=== PATIENT | female | born 1950 | race Caucasian/White ===

== ENCOUNTER 2024-09-05 17:46 | Observation (INO) ==
--- NOTE | 2024-09-05 17:50 | ED Triage Note ---
Date of Service September 05, 2024 Provider in Triage Author: Shana Hassan History of Present Illness This patient was briefly evaluated while in triage. An abbreviated physical exam was performed. This patient is a 73-year-old Female who presents to the ED for evaluation hx of CAD, HTN, lipids was on low dose Lasix recently sent by cardiology for abnormal labs checked today low sodium 129, potassium 6.3 patient asymptomatic Physical Exam GENERAL: NAD CARDIOVASCULAR: RRR RESPIRATORY: CTA ABDOMEN: BS x 4. Nontender to palpation. Initial orders for labs and / or imaging were placed and patient was placed in the waiting area until a bed is available. Please see further documentation for the full ED course.
--- NOTE | 2024-09-05 18:14 | Emergency Department Note ---
Impression & Plan Acute hyperkalemia, JEFF (acute kidney injury) ED Provider Note HISTORY OF PRESENT ILLNESS: Patient is a 73-year-old female presenting with lab abnormalities. Patient was started on Lasix recently by her digital account supervisor 2 weeks ago. She had repeat laboratory workup done today and was referred to the emergency department due to her potassium being elevated. Patient reports no chest pain, shortness of breath or lightheadedness. Denies any nausea, vomiting or diarrhea. Denies any abdominal pain. She has no complaints. ROS: as above PHYSICAL EXAM: Constitutional: Patient appears in no acute distress. HENT: Head: Normocephalic and atraumatic. Eyes: EOMI, PERRL Mouth/Throat: Mucous membranes moist. Neck: Trachea midline. Neck supple. Cardiovascular: RRR, No murmurs, rubs or gallops. Intact distal pulses. Pulmonary/Chest: No respiratory distress. Breath sounds clear and equal bilaterally. No wheezes or rales. Abdominal: Abdomen soft, no tenderness, rebound or guarding. Musculoskeletal: No edema, tenderness or deformity noted. Skin: Warm and dry. No rash, erythema, pallor or cyanosis Psychiatric: Appropriate mood and affect for situation. Neurological: Alert and keenly responsive. CN II-XII grossly intact, moving all extremities equally and fully. MDM: - Vitals signs showed bradycardic. - History obtained via patient. History as above. - Chronic conditions affecting care: CAD; HLD; HTN - Differential diagnoses include, but are not limited to: kidney injury; dehydration; electrolyte abnormality; dysrhythmia - Order placed for continuous cardiac monitoring. At this time, monitor showed rate of 58 bpm with normal sinus rhythm, per my interpretation. - External medical records reviewed. Laboratory workup from earlier today was reviewed and showed potassium of 6.3 - EKG interpreted by myself showed normal sinus rhythm. Rate 59 bpm. QT 430. No acute ischemic changes. No significant peaked T waves. - Laboratory workup interpreted by myself showed slight leukocytosis (WBC 11.57); hyponatremia (Na 132); hyperkalemia (K 5.2); JEFF (Cr 2.24); hypermagnesemia (Mg 2.8); normal troponin - CXR negative for pneumonia, per my interpretation - Patient given 500 cc NS in ER. - Discussion was had with human services case manager about patient's case and need for admission - Hospitalist, Dr. Vasquez, consulted for admission - Patient admitted to [facility] service for further evaluation and management. 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) Abdominal pain (Acute) Intractable back pain (Acute 08/25/14) MRSA (methicillin resistant Staphylococcus aureus) (Acute) Postoperative state (Acute 03/20/14) Flank pain (Acute) Thoracic disc herniation (Acute) Medical History Depression, unspecified Esophageal reflux Hypertension Spondylolisthesis 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) Surgical History Tubal ligation status Social History Smoking Status: Current every day smoker Hx Alcohol Use: Yes Preferred Language: Pakistani Feels Safe at Home: Yes Allergies Allergies Allergy/AdvReac Type Severity Reaction Status Date / Time No Known Allergies Allergy Unverified 09/05/24 09:29 Home Meds Home Medications Medication Instructions Recorded Confirmed clonazepam 0.5 mg tablet 0.5 mg PO DAILY PRN 04/23/23 09/05/24 coenzyme Q10 200 mg capsule 200 mg PO DAILY 04/23/23 09/05/24 famotidine 40 mg tablet 40 mg PO DAILY 04/23/23 09/05/24 gabapentin 600 mg tablet 600 mg PO TID 04/23/23 09/05/24 linaclotide 145 mcg capsule 145 mcg PO DAILY 04/23/23 09/05/24 (Linzess) metoprolol succinate 50 mg 50 mg PO DAILY 04/23/23 09/05/24 tablet,extended release 24 hr sucralfate 1 gram tablet 1 g PO DAILY 04/23/23 09/05/24 aspirin 81 mg tablet,delayed 81 mg PO DAILY 08/22/24 09/05/24 release cholecalciferol (vitamin D3) 25 25 mcg PO WK 08/22/24 09/05/24 mcg (1,000 unit) capsule duloxetine 20 mg capsule,delayed 20 mg PO DAILY 08/22/24 09/05/24 release losartan 100 mg tablet 100 mg PO DAILY 08/22/24 09/05/24 Previous Rx's Medication Instructions Recorded magnesium chloride 71.5 mg 71.5 mg PO BID #60 tabs 06/24/23 (magnesium chloride) tablet,delayed release (Slow-Mag) tramadol 50 mg tablet 50 mg PO Q8H PRN pain #90 tabs 01/22/24 amlodipine 5 mg tablet 5 mg PO DAILY #90 tabs 04/22/24 triamterene 37.5 See Rx Instructions .Route 05/24/24 mg-hydrochlorothiazide 25 mg .COMPLEX #90 caps capsule furosemide 20 mg tablet (Lasix) 20 mg PO DAILY PRN weight gain, 09/05/24 edema, shortness of breath #30 tabs Results & Data (ED) Vital Signs Vital Signs - 24 hr 09/05/24 17:48 09/05/24 18:19 09/05/24 18:20 Temperature 36.0 C L Temperature Source Temporal Artery Scan Pulse Rate 59 L Pulse Rate [Apical] 62 Pulse Rate from SpO2 Sensor Respiratory Rate 16 20 Respiratory Effort / Characteristics Non-Labored Spontaneous Respiratory Depth Normal Respiratory Pattern Regular Blood Pressure 128/54 L 147/75 H Blood Pressure [Right Arm] 147/75 H Blood Pressure Mean 78 101 Blood Pressure Mean [Right Arm] 99 Pulse Oximetry 97 97 Oxygen Delivery Method Room Air Room Air Sepsis Recent Fever Within 48 Hours No Sepsis New/Unexplained Change in Mental Status N/A Sepsis Action Taken by Nursing No Action Required 09/05/24 18:21 09/05/24 18:22 09/05/24 18:24 Temperature Temperature Source Pulse Rate 62 60 60 Pulse Rate [Apical] Pulse Rate from SpO2 Sensor 60 Respiratory Rate 20 18 Respiratory Effort / Characteristics Respiratory Depth Respiratory Pattern Blood Pressure Blood Pressure [Right Arm] Blood Pressure Mean Blood Pressure Mean [Right Arm] Pulse Oximetry 97 97 Oxygen Delivery Method Room Air Sepsis Recent Fever Within 48 Hours Sepsis New/Unexplained Change in Mental Status Sepsis Action Taken by Nursing 09/05/24 18:27 09/05/24 18:30 09/05/24 18:42 Temperature Temperature Source Pulse Rate 60 59 L Pulse Rate [Apical] Pulse Rate from SpO2 Sensor 60 59 L Respiratory Rate 20 18 Respiratory Effort / Characteristics Respiratory Depth Respiratory Pattern Blood Pressure 131/70 Blood Pressure [Right Arm] Blood Pressure Mean 101 Blood Pressure Mean [Right Arm] Pulse Oximetry 96 95 Oxygen Delivery Method Sepsis Recent Fever Within 48 Hours Sepsis New/Unexplained Change in Mental Status Sepsis Action Taken by Nursing 09/05/24 18:54 09/05/24 19:00 09/05/24 19:00 Temperature Temperature Source Pulse Rate 64 Pulse Rate [Apical] Pulse Rate from SpO2 Sensor 63 Respiratory Rate 21 Respiratory Effort / Characteristics Respiratory Depth Respiratory Pattern Blood Pressure 122/99 122/99 Blood Pressure [Right Arm] Blood Pressure Mean 114 114 Blood Pressure Mean [Right Arm] Pulse Oximetry 96 Oxygen Delivery Method Sepsis Recent Fever Within 48 Hours Sepsis New/Unexplained Change in Mental Status Sepsis Action Taken by Nursing 09/05/24 19:03 09/05/24 19:24 09/05/24 19:30 Temperature Temperature Source Pulse Rate 58 L 59 L Pulse Rate [Apical] Pulse Rate from SpO2 Sensor 57 L 59 L Respiratory Rate 19 19 Respiratory Effort / Characteristics Respiratory Depth Respiratory Pattern Blood Pressure 127/61 Blood Pressure [Right Arm] Blood Pressure Mean 95 Blood Pressure Mean [Right Arm] Pulse Oximetry 96 96 Oxygen Delivery Method Sepsis Recent Fever Within 48 Hours Sepsis New/Unexplained Change in Mental Status Sepsis Action Taken by Nursing 09/05/24 19:30 09/05/24 19:48 09/05/24 19:54 Temperature Temperature Source Pulse Rate 58 L 58 L 60 Pulse Rate [Apical] Pulse Rate from SpO2 Sensor 58 L 58 L 60 Respiratory Rate 24 27 H 17 Respiratory Effort / Characteristics Respiratory Depth Respiratory Pattern Blood Pressure Blood Pressure [Right Arm] Blood Pressure Mean Blood Pressure Mean [Right Arm] Pulse Oximetry 98 97 97 Oxygen Delivery Method Sepsis Recent Fever Within 48 Hours Sepsis New/Unexplained Change in Mental Status Sepsis Action Taken by Nursing 09/05/24 20:00 09/05/24 20:00 09/05/24 20:01 Temperature Temperature Source Pulse Rate Pulse Rate [Apical] 62 Pulse Rate from SpO2 Sensor Respiratory Rate 20 21 Respiratory Effort / Characteristics Non-Labored Spontaneous Respiratory Depth Normal Respiratory Pattern Regular Blood Pressure 127/62 Blood Pressure [Right Arm] 127/62 Blood Pressure Mean 76 Blood Pressure Mean [Right Arm] 83 Pulse Oximetry 98 Oxygen Delivery Method Room Air Sepsis Recent Fever Within 48 Hours Sepsis New/Unexplained Change in Mental Status Sepsis Action Taken by Nursing 09/05/24 20:12 Temperature Temperature Source Pulse Rate 58 L Pulse Rate [Apical] Pulse Rate from SpO2 Sensor Respiratory Rate 16 Respiratory Effort / Characteristics Respiratory Depth Respiratory Pattern Blood Pressure Blood Pressure [Right Arm] Blood Pressure Mean Blood Pressure Mean [Right Arm] Pulse Oximetry 98 Oxygen Delivery Method Sepsis Recent Fever Within 48 Hours Sepsis New/Unexplained Change in Mental Status Sepsis Action Taken by Nursing Laboratory Data 09/05/24 18:05 09/05/24 18:05 Lab Results 09/05/24 Range/Units 18:05 WBC 11.57 H (4.8-10.8) K/ul RBC 3.84 L (4.20-5.40) M/uL Hgb 12.7 (12.0-16.0) g/dl Hct 36.2 L (37.0-47.0) % MCV 94.3 (80.0-100.0) fL MCH 33.1 (25.0-34.0) pg MCHC 35.1 (32.0-36.0) g/dL RDW Std Deviation 45.5 (36.4-46.3) fL RDW Coeff of Celina 13.2 (11.5-14.5) % Plt Count 326 (130-400) K/uL MPV 9.2 L (9.4-12.4) fL Neutrophils % (Manual) 43 % Lymphocytes % (Manual) 45 % Monocytes % (Manual) 6 % Eosinophils % (Manual) 5 % Basophils % (Manual) 1 % Neutrophils # (Manual) 4.98 (1.40-6.50) K/uL Total Absolute Neuts 4.98 (1.4-6.5) K/uL Lymphocytes # (Manual) 5.21 H (1.2-3.4) K/uL Total Abs Lymphocytes 5.21 H (1.2-3.4) K/uL Monocytes # (Manual) 0.69 H (0.11-0.59) K/uL Eosinophils # (Manual) 0.58 H (0-0.50) K/uL Basophils # (Manual) 0.12 (0-0.2) K/uL RBC Morphology Unremarkable Sodium 132 L (136-145) mmol/L Potassium 5.2 H (3.5-5.1) mmol/L Chloride 99 (98-107) mmol/L Carbon Dioxide 24 (21-32) mmol/L Anion Gap 9 (3-11) BUN 49 H (6-23) mg/dl Creatinine 2.24 H D (0.6-1.2) mg/dl Est Cr Clr Drug Dosing 21.5 ml/min eGFR 22.88 BUN/Creatinine Ratio 21.9 H (10-20) Glucose 95 (70-99(Fasting)) mg/dl Calcium 9.4 (8.6-10.3) mg/dl Magnesium 2.8 H (1.7-2.4) mg/dl Total Bilirubin 0.3 (0.2-1.0) mg/dl AST 15 (13-39) U/L ALT 12 (7-52) U/L Alkaline Phosphatase 92 (34-104) U/L Troponin I High Sens 4.4 (0-14) pg/ml Total Protein 7.5 (6.0-8.3) gm/dl Albumin 4.3 (3.4-5.0) gm/dl Globulin 3.2 (2.5-4.0) gm/dl Albumin/Globulin Ratio 1.3 (0.9-2) Administered Medications Discontinued Medications Sodium Chloride (Nss) 500 mls @ 999 mls/hr IV .Q31M ONE Stop: 09/05/24 19:36 Last Infusion: 09/05/24 19:42 Dose: Infused Documented By: [facility] Admin: 09/05/24 19:10 Dose: 999 mls/hr Documented By: [facility] Imaging Data Radiologist's Impression: Chest X-Ray 09/05/24 17:52 SINGLE VIEW CHEST CLINICAL HISTORY: Hyperkalemia FINDINGS: A PA chest radiograph is compared to study dated 08/22/2024. The cardiomediastinal silhouette is top normal for projection noting atherosclerotic calcification of the thoracic aorta. The lungs and pleural spaces are clear. No pneumothorax is seen. The skeletal structures are osteopenic. The bony thorax is grossly intact. Degenerative change is noted in the shoulders and spine. IMPRESSION: No active disease in the chest. ACT 112: Negative or not required by law. Electronically signed by: Matt Hanks M.D. 09/05/2024 6:31 PM Discharge Plan Visit Data Chief Complaint: Recheck/Abnormal Lab/Rx Stated Complaint: high potassium levels ED Provider: Barbara Hammond Discharge Problem: Acute hyperkalemia, JEFF (acute kidney injury) Forms Stand Alone Forms: [facility] Prescriptions Prescriptions: No Action Slow-Mag 71.5 mg tablet,delayed release (DR/EC) 71.5 mg PO BID Qty: 60 11RF tramadol 50 mg tablet 50 mg PO Q8H PRN (Reason: pain) Qty: 90 3RF amlodipine 5 mg tablet 5 mg PO DAILY Qty: 90 3RF triamterene-hydrochlorothiazid 37.5-25 mg capsule See Rx Instructions .ROUTE .COMPLEX Qty: 90 3RF Hold Instructions: JEFF/hyperkalemia Dose Instruction: TAKE ONE CAPSULE BY MOUTH EVERY DAY Rx Instructions: TAKE ONE CAPSULE BY MOUTH EVERY DAY gabapentin 600 mg tablet 600 mg PO TID sucralfate 1 gram tablet 1 g PO DAILY Linzess 145 mcg capsule 145 mcg PO DAILY clonazepam 0.5 mg tablet 0.5 mg PO DAILY PRN famotidine 40 mg tablet 40 mg PO DAILY metoprolol succinate 50 mg tablet extended release 24 hr 50 mg PO DAILY coenzyme Q10 200 mg capsule 200 mg PO DAILY duloxetine 20 mg capsule,delayed release(DR/EC) 20 mg PO DAILY losartan 100 mg tablet 100 mg PO DAILY Hold Instructions: JEFF/hyperkalemia cholecalciferol (vitamin D3) 25 mcg (1,000 unit) capsule 25 mcg PO WK aspirin 81 mg tablet,delayed release (DR/EC) 81 mg PO DAILY furosemide [Lasix] 20 mg tablet 20 mg PO DAILY PRN (Reason: weight gain, edema, shortness of breath) Qty: 30 2RF Referrals Referrals: Dusty Snyder [Primary Care Provider] -
--- NOTE | 2024-09-05 18:33 | XRay Report ---
SINGLE VIEW CHEST CLINICAL HISTORY: Hyperkalemia FINDINGS: A PA chest radiograph is compared to study dated 08/22/2024. The cardiomediastinal silhouett e is top normal for projection noting atherosclerotic calcification of the thoracic aorta. The lungs and pleural spaces are clear. No pneumothorax is seen. The skeletal structures are osteopenic. The mikal ny thorax is grossly intact. Degenerative change is noted in the shoulders and spine. IMPRESSION: No active disease in the chest. ACT 112: Negative or not required by law. Electronically signed by: Matt aHnks M.D. 09/05/2024 6:31 PM
[2024-09-05 18:46] LABS: Hematocrit (blood only) 36.2 % (37.0-47.0); Hemoglobin 12.7 g/dl (12.0-16.0); Mean Corpuscular Hemoglobin 33.1 pg (25.0-34.0); Mean Corpuscular Hgb Conc 35.1 g/dL (32.0-36.0); Mean Corpuscular Volume 94.3 fL (80.0-100.0); Mean Platelet Volume 9.2 fL (9.4-12.4); Platelet Count 326 K/uL (130-400); RDW Coefficient of Variation 13.2 % (11.5-14.5); RDW Standard Deviation 45.5 fL (36.4-46.3); Red Blood Count 3.84 M/uL (4.20-5.40); White Blood Count 11.57 K/ul (4.8-10.8)
[2024-09-05 18:58] LABS: ALC (manual) 5.21 K/uL (1.2-3.4); ANC (manual) 4.98 K/uL (1.4-6.5); Albumin Globulin Ratio 1.3 (0.9-2); Albumin Level 4.3 gm/dl (3.4-5.0); BUN Creatinine Ratio 21.9 (10-20); Basophils # (manual) 0.12 K/uL (0-0.2); Basophils % (manual) 1 %; Bilirubin,Total 0.3 mg/dl (0.2-1.0); Calcium 9.4 mg/dl (8.6-10.3); Creatinine Clr Calc Pharmacy 21.5 ml/min; Eosinophils # (manual) 0.58 K/uL (0-0.50); Eosinophils % (manual) 5 %; Globulin 3.2 gm/dl (2.5-4.0); Lymphocytes # (manual) 5.21 K/uL (1.2-3.4); Lymphocytes % (manual) 45 %; Magnesium 2.8 mg/dl (1.7-2.4); Monocytes # (manual) 0.69 K/uL (0.11-0.59); Monocytes % (manual) 6 %; Neutrophils # (manual) 4.98 K/uL (1.40-6.50); Neutrophils % (manual) 43 %; Potassium 5.2 mmol/L (3.5-5.1); RBC Morphology Unremarkable; Total Protein 7.5 gm/dl (6.0-8.3)
[2024-09-05 19:03] LABS: Troponin I High Sensitivity 4.4 pg/ml (0-14)
[2024-09-05] MEDS: SODIUM CHLORIDE 0.9% 500 ML IV ONE (19:10)
--- NOTE | 2024-09-05 21:02 | History & Physical Report ---
Date of Service September 05, 2024 Assessment & Plan (1) JEFF (acute kidney injury): (2) Acute hyperkalemia: (3) Shortness of breath: (4) Dyspnea on exertion: (5) Hypertension: (6) Stented coronary artery: (7) CAD (coronary artery disease): (8) Hypercholesterolemia: Plan Acute kidney injury/hyperkalemia/dehydration/hypertension- Hold Lasix, triamterene/hydrochlorothiazide and losartan Status post NSS 500 mL bolus in the ED Placed on NSS at 80 mL/h x 500 mL Recheck laboratories in a.m. CAD/hypertension- Holding Lasix, triamterene/HCTZ and losartan as noted well Continue aspirin, metoprolol succinate and amlodipine GERD/hiatal hernia- Suggested that she minimize acid drinks such as apple cider and Pepsi She presently is on famotidine 40 mg in the a.m., and Carafate 1 g daily If she has persistent symptoms of reflux despite dietary adjustments, medication adjustments can be made by increasing Carafate, and/or adding pantoprazole Anxiety- Continue Duloxetine and clonazepam History of Present Illness Chief Complaint: The patient is referred to the emergency department by the heart failure clinic, due to worsening outpatient laboratories with concerns regarding elevated potassium and worsening kidney function after being placed on Lasix 2 weeks ago. Primary Care Provider: Dusty Snyder The patient is a 73-year-old female with a past medical history including hypertension, stented coronary artery, hypercholesterolemia, CAD, anxiety, GERD, neuropathy, and shortness of breath with dyspnea on exertion. She was placed on Lasix 2 weeks ago by cardiology, and had outpatient laboratories performed today, which showed potassium 6.3 and a creatinine 1.83, and she was then referred to the ED for further assessment. Laboratories performed in the emergency department revealed a potassium of 5.2, and a creatinine of 2.24, and the patient was referred for evaluation for admission. Allergies Allergy/AdvReac Type Severity Reaction Status Date / Time No Known Allergies Allergy Unverified 09/05/24 09:29 Home Medications Medication Instructions Recorded Confirmed Type clonazepam 0.5 mg tablet 0.5 mg PO DAILY PRN Anxiety 04/23/23 09/05/24 History coenzyme Q10 200 mg capsule 200 mg PO DAILY 04/23/23 09/05/24 History famotidine 40 mg tablet 40 mg PO DAILY 04/23/23 09/05/24 History gabapentin 600 mg tablet 600 mg PO TID 04/23/23 09/05/24 History linaclotide 145 mcg capsule 145 mcg PO DAILY 04/23/23 09/05/24 History (Linzess) metoprolol succinate 50 mg 50 mg PO DAILY 04/23/23 09/05/24 History tablet,extended release 24 hr sucralfate 1 gram tablet 1 g PO DAILY 04/23/23 09/05/24 History magnesium chloride 71.5 mg 71.5 mg PO BID #60 tabs 06/24/23 09/05/24 Rx (magnesium chloride) tablet,delayed release (Slow-Mag) tramadol 50 mg tablet 50 mg PO Q8H PRN pain #90 tabs 01/22/24 09/05/24 Rx amlodipine 5 mg tablet 5 mg PO DAILY #90 tabs 04/22/24 09/05/24 Rx triamterene 37.5 See Rx Instructions .Route 05/24/24 09/05/24 Rx mg-hydrochlorothiazide 25 mg .COMPLEX #90 caps capsule aspirin 81 mg tablet,delayed 81 mg PO DAILY 08/22/24 09/05/24 History release cholecalciferol (vitamin D3) 25 25 mcg PO WK 08/22/24 09/05/24 History mcg (1,000 unit) capsule duloxetine 20 mg capsule,delayed 20 mg PO DAILY 08/22/24 09/05/24 History release losartan 100 mg tablet 100 mg PO DAILY 08/22/24 09/05/24 History furosemide 20 mg tablet (Lasix) 20 mg PO DAILY PRN weight gain, 09/05/24 09/05/24 Rx edema, shortness of breath #30 tabs Past Med/Surg History Problem List (Updated 09/05/24 @ 20:36 by Barbara Hammond MD) JEFF (acute kidney injury) (Acute) Acute hyperkalemia (Acute) Shortness of breath Dyspnea on exertion Osteoarthritis Hypomagnesemia Hypertension Stented coronary artery Hypercholesterolemia CAD (coronary artery disease) Thoracic disc herniation (Acute 08/29/14) Abdominal pain (Acute) Intractable back pain (Acute 08/25/14) MRSA (methicillin resistant Staphylococcus aureus) (Acute) Postoperative state (Acute 03/20/14) Flank pain (Acute) Thoracic disc herniation (Acute) Medical History Depression, unspecified Esophageal reflux Hypertension Spondylolisthesis 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) Surgical History Tubal ligation status Social History Smoking Status: Current every day smoker Tobacco Type: Cigarettes Cigarettes Per Day: 1 pack; Second Hand Exposure: No; Do You Dip or Chew Tobacco: No; Tobacco Cessation Education Requested by Patient: No Hx Alcohol Use: Yes Alcohol type: hard liquor Hx Substance Use: No Preferred Language: Serbian Communication Ability: Effective Hplc Chemist Required: No Beliefs That Will Affect Care: None Current Living Situation: Spouse Other Information That Helps Us Care for You: No Feels Safe at Home: Yes Safety Concerns: Feels Safe At This Time Assistive Devices: Denture - Upper and Glasses Review of Systems Review of Systems: The patient denies chest pain, palpitations, cough, lower extremity swelling, sore throat, fevers, chills, sweats, nausea, vomiting, diarrhea , constipation, abdominal pain, pelvic pain, blood in urine or stool, dysuria, urinary frequency or urgency, lightheadedness, dizziness, headache, memory loss, loss of consciousness, rash, abnormal bruising or bleeding, imbalance, focal weakness, numbness or tingling in arms or legs, generalized arthralgias or myalgias, back or neck pain, or night sweats. The review of systems is otherwise negative other than for that already noted above, and at least 10 systems have been reviewed. Physical Exam Physical Exam: The patient is awake, alert and oriented 3, well developed and well nourished, normocephalic and atraumatic, lying in bed and in no acute distress. HEENT--PERRL, EOMI, mucous membranes and oropharynx dry Neck--supple. No JVD. No bruits. Thyroid normal, trachea midline, no adenopathy. Heart--normal S1 and S2. No murmurs, rubs or gallops. Lungs--clear bilaterally, no respiratory distress, no accessory muscle use. Abdomen--normal bowel sounds and soft. Nontender. Nondistended, no hernias or masses, no organomegaly. Extremities--no cyanosis or clubbing. No edema. There are good distal pulses b/l. Dermatologic--normal skin turgor, normal color, no abnormal lymph nodes, no rash. Neurologic--cranial nerves II through XII grossly intact. Rheumatologic--normal range of motion. Psychiatric--normal affect. Results & Data Results & Data Vital Signs (Past 12 Hours) Vital Signs Temp Pulse Pulse Resp BP BP Pulse Ox 09/05/24 20:51 62 20 95 09/05/24 20:45 62 23 95 09/05/24 20:33 62 25 H 98 09/05/24 20:31 133/45 L 09/05/24 20:12 58 L 16 98 09/05/24 20:01 127/62 09/05/24 20:00 21 09/05/24 20:00 62 20 127/62 98 09/05/24 19:54 60 17 97 09/05/24 19:48 58 L 27 H 97 09/05/24 19:30 58 L 24 98 09/05/24 19:30 127/61 09/05/24 19:24 59 L 19 96 09/05/24 19:03 58 L 19 96 09/05/24 19:00 122/99 09/05/24 19:00 122/99 09/05/24 18:54 64 21 96 09/05/24 18:42 59 L 18 95 09/05/24 18:30 131/70 09/05/24 18:27 60 20 96 09/05/24 18:24 60 18 97 09/05/24 18:22 60 20 97 09/05/24 18:21 62 09/05/24 18:20 62 20 147/75 H 97 09/05/24 18:19 147/75 H 09/05/24 17:48 36.0 C L 59 L 16 128/54 L 97 O2 Del Method 09/05/24 20:51 09/05/24 20:45 09/05/24 20:33 09/05/24 20:31 09/05/24 20:12 09/05/24 20:01 09/05/24 20:00 09/05/24 20:00 Room Air 09/05/24 19:54 09/05/24 19:48 09/05/24 19:30 09/05/24 19:30 09/05/24 19:24 09/05/24 19:03 09/05/24 19:00 09/05/24 19:00 09/05/24 18:54 09/05/24 18:42 09/05/24 18:30 09/05/24 18:27 09/05/24 18:24 09/05/24 18:22 Room Air 09/05/24 18:21 09/05/24 18:20 Room Air 09/05/24 18:19 09/05/24 17:48 Room Air Laboratory Results Laboratory Results WBC 11.57 K/ul (4.8-10.8) H 09/05/24 18:05 RBC 3.84 M/uL (4.20-5.40) L 09/05/24 18:05 Hgb 12.7 g/dl (12.0-16.0) 09/05/24 18:05 Hct 36.2 % (37.0-47.0) L 09/05/24 18:05 MCV 94.3 fL (80.0-100.0) 09/05/24 18:05 MCH 33.1 pg (25.0-34.0) 09/05/24 18:05 MCHC 35.1 g/dL (32.0-36.0) 09/05/24 18:05 RDW Std Deviation 45.5 fL (36.4-46.3) 09/05/24 18:05 RDW Coeff of Celina 13.2 % (11.5-14.5) 09/05/24 18:05 Plt Count 326 K/uL (130-400) 09/05/24 18:05 MPV 9.2 fL (9.4-12.4) L 09/05/24 18:05 Neutrophils % (Manual) 43 % 09/05/24 18:05 Lymphocytes % (Manual) 45 % 09/05/24 18:05 Monocytes % (Manual) 6 % 09/05/24 18:05 Eosinophils % (Manual) 5 % 09/05/24 18:05 Basophils % (Manual) 1 % 09/05/24 18:05 Neutrophils # (Manual) 4.98 K/uL (1.40-6.50) 09/05/24 18:05 Total Absolute Neuts 4.98 K/uL (1.4-6.5) 09/05/24 18:05 Lymphocytes # (Manual) 5.21 K/uL (1.2-3.4) H 09/05/24 18:05 Total Abs Lymphocytes 5.21 K/uL (1.2-3.4) H 09/05/24 18:05 Monocytes # (Manual) 0.69 K/uL (0.11-0.59) H 09/05/24 18:05 Eosinophils # (Manual) 0.58 K/uL (0-0.50) H 09/05/24 18:05 Basophils # (Manual) 0.12 K/uL (0-0.2) 09/05/24 18:05 RBC Morphology Unremarkable 09/05/24 18:05 Sodium 132 mmol/L (136-145) L 09/05/24 18:05 Potassium 5.2 mmol/L (3.5-5.1) H 09/05/24 18:05 Chloride 99 mmol/L (98-107) 09/05/24 18:05 Carbon Dioxide 24 mmol/L (21-32) 09/05/24 18:05 Anion Gap 9 (3-11) 09/05/24 18:05 BUN 49 mg/dl (6-23) H 09/05/24 18:05 Creatinine 2.24 mg/dl (0.6-1.2) H D 09/05/24 18:05 Est Cr Clr Drug Dosing 21.5 ml/min 09/05/24 18:05 eGFR 22.88 09/05/24 18:05 BUN/Creatinine Ratio 21.9 (10-20) H 09/05/24 18:05 Glucose 95 mg/dl (70-99(Fasting)) 09/05/24 18:05 Calcium 9.4 mg/dl (8.6-10.3) 09/05/24 18:05 Magnesium 2.8 mg/dl (1.7-2.4) H 09/05/24 18:05 Total Bilirubin 0.3 mg/dl (0.2-1.0) 09/05/24 18:05 AST 15 U/L (13-39) 09/05/24 18:05 ALT 12 U/L (7-52) 09/05/24 18:05 Alkaline Phosphatase 92 U/L (34-104) 09/05/24 18:05 Troponin I High Sens 4.4 pg/ml (0-14) 09/05/24 18:05 Total Protein 7.5 gm/dl (6.0-8.3) 09/05/24 18:05 Albumin 4.3 gm/dl (3.4-5.0) 09/05/24 18:05 Globulin 3.2 gm/dl (2.5-4.0) 09/05/24 18:05 Albumin/Globulin Ratio 1.3 (0.9-2) 09/05/24 18:05 Impressions Chest X-Ray 09/05/24 17:52 SINGLE VIEW CHEST CLINICAL HISTORY: Hyperkalemia FINDINGS: A PA chest radiograph is compared to study dated 08/22/2024. The cardiomediastinal silhouette is top normal for projection noting atherosclerotic calcification of the thoracic aorta. The lungs and pleural spaces are clear. No pneumothorax is seen. The skeletal structures are osteopenic. The bony thorax is grossly intact. Degenerative change is noted in the shoulders and spine. IMPRESSION: No active disease in the chest. ACT 112: Negative or not required by law. Electronically signed by: Matt Hanks M.D. 09/05/2024 6:31 PM Code Status & VTE Plan Code Status Full code VTE Prophylaxis Plan VTE Prophylaxis will be ordered: Yes PG Care Time/CCT Total # of Minutes Spent Total Time Spent with Patient: Total time spent is greater than 50% in coordination of care (as documented) at patient's floor/unit and/or counseling patient: Coding Level of Care Code 96470 INT INP/OBS CARE 3/75MIN Diagnoses JEFF (acute kidney injury) N17.9 Acute hyperkalemia E87.5 Shortness of breath R06.02 Dyspnea on exertion R06.09 Hypertension I10 Hypertension type: unspecified Stented coronary artery Z95.5 CAD (coronary artery disease) I25.10 Hypercholesterolemia E78.00 (5) Hypertension Hypertension type: unspecified Qualified Code(s): I10 - Essential (primary) hypertension
[2024-09-05] MEDS: SODIUM CHLORIDE 0.9% 500 ML IV SCH (21:20)
[2024-09-05] MEDS ORDERED: ACETAMINOPHEN 325 MG TAB PO PRN (22:26)
[2024-09-05] MEDS ORDERED: ONDANSETRON INJ 2 MG/ML 2 ML VIAL IV PRN (22:26)
[2024-09-05] MEDS ORDERED: clonazePAM 0.5 MG TAB PO PRN (22:26)
[2024-09-05] MEDS: FAMOTIDINE 40 MG TABLET PO SCH (23:33)
[2024-09-05] MEDS: GABAPENTIN 600 MG TAB PO SCH (23:33)
[2024-09-06 07:09] LABS: Basophils # (auto) 0.08 K/uL (0.00-0.20); Eosinophils # (auto) 0.03 K/uL (0.00-0.50); Eosinophils % (auto) 0.4 %; Hematocrit (blood only) 35.4 % (37.0-47.0); Immature Granulocytes # (auto) 0.04 K/uL (0.01-0.20); Immature Granulocytes % (auto) 0.5 %; Lymphocytes # (auto) 2.83 K/uL (1.20-3.40); Lymphocytes % (auto) 33.7 %; Mean Corpuscular Hemoglobin 32.3 pg (25.0-34.0); Mean Corpuscular Hgb Conc 33.9 g/dL (32.0-36.0); Mean Corpuscular Volume 95.2 fL (80.0-100.0); Mean Platelet Volume 8.8 fL (9.4-12.4); Monocytes # (auto) 0.65 K/uL (0.11-0.59); Monocytes % (auto) 7.7 %; Neutrophils # (auto) 4.76 K/uL (1.40-6.50); Neutrophils % (auto) 56.7 %; Platelet Count 264 K/uL (130-400); RDW Coefficient of Variation 13.3 % (11.5-14.5); RDW Standard Deviation 46.4 fL (36.4-46.3); Red Blood Count 3.72 M/uL (4.20-5.40); White Blood Count 8.39 K/ul (4.8-10.8)
[2024-09-06 07:28] LABS: Albumin Level 3.9 gm/dl (3.4-5.0); BUN Creatinine Ratio 24.5 (10-20); Calcium 8.7 mg/dl (8.6-10.3); Creatinine Clr Calc Pharmacy 33.6 ml/min; Magnesium 2.7 mg/dl (1.7-2.4); Phosphorus 3.7 mg/dl (2.5-4.9)
[2024-09-06 08:03] LABS: INR 0.9 (0.9-1.1); Partial Thromboplastin Time 26 Seconds (21-31); Prothrombin Time 10.1 Seconds (9.0-12.0)
[2024-09-06] MEDS: SUCRALFATE 1 GM TAB PO SCH (08:17)
[2024-09-06] MEDS: LINACLOTIDE 145 MCG CAPSULE PO SCH (08:17)
[2024-09-06] MEDS: ASPIRIN 81 MG ECTAB PO SCH (08:17)
[2024-09-06] MEDS: METOPROLOL SUCC 50MG EXT REL TAB PO SCH (08:17)
[2024-09-06] MEDS: DULoxetine HCL 20 MG CAP PO SCH (08:17)
[2024-09-06] MEDS: amLODIPine BESYLATE 5 MG TAB PO SCH (08:17)
--- NOTE | 2024-09-06 08:18 | Hospitalist Progress Note ---
Date of Service September 06, 2024 Assessment & Plan (1) JEFF (acute kidney injury): Plan: Presented at the referral of the heart failure clinic due to worsening outpatient laboratories with concerns regarding elevated potassium and worsening kidney function after being placed on Lasix 2 weeks ago. EF=60-65%. - Outpatient labs showed potassium of 6.3 and creatinine of 1.83 - Received 500 mL bolus in ED then maintenance 500 mL NSS - Potassium now WNL at 5.0, sodium now WNL at 136, magnesium slightly improved to 2.7 - Creatinine remains elevated, though improving at 1.43 - Hold Lasix, triamterene/hydrochlorothiazide, and losartan - Recheck laboratories in a.m. (2) Hypertension: Plan: CAD/hypertension - Holding Lasix, triamterene/HCTZ and losartan as noted well - Continue aspirin and amlodipine - Intermittent asymptomatic bradycardia, on metoprolol succinate 50 mg daily > Will hold 10/23 AM and monitor HR (3) Esophageal reflux: Plan: GERD/hiatal hernia- - Suggested that she minimize acid drinks such as apple cider and Pepsi - She presently is on famotidine 40 mg in the a.m. and Carafate 1 g daily - If she has persistent symptoms of reflux despite dietary adjustments, medication adjustments can be made by increasing Carafate, and/or adding pantoprazole (4) Lymphocytosis: Plan: Peripheral blood smear shows a lymphocytosis and monocytosis with reactive features - Potential etiologies include viral infection versus stress, among others - While a reactive etiology is favored, if the lymphocyte counts continues to increase without a clinically identifiable cause, then flow cytometry may be warranted to rule out a clonal component - Continue to monitor differential (5) Depression, unspecified: Plan: Continue Duloxetine and clonazepam (6) Acute hyperkalemia: Plan: Potassium of 6.4 on outpatient labs - Resolved (7) CAD (coronary artery disease): Plan Updated daughter at bedside Held metoprolol Ordered nicotine patch Reviewed tele monitoring CODE STATUS: Full code Admission and Anticipated Discharge Date Admission Date: September 05, 2024 Supervising Physician Co-Signing Physician Notes Attending Attestation - Chart reviewed, care plan d/w BLOSSOM Bell. I agree w/ the troy components of her documentation. Enoch Vale MD Subjective Patient seen and evaluated at bedside with daughter. She reports feeling well and has no acute complaints. She does note that she was frustrated with a lot of recent medication changes. We had a lengthy discussion about her medications, side effects of them, treatment course moving forward and outpatient. No additional concerns or complaints at this time. Physical Exam Physical Exam: General: No acute distress, nondiaphoretic, well-developed, well-nourished. Skin: The skin was without rashes, erythema, edema, or bruising. Cardiac: Regular rate and rhythm without murmurs gallops or rubs. Intermittent asymptomatic bradycardia in the 40s-50s. Pulm: Expiratory wheezing bilaterally. No respiratory distress. 95% on room air. Abdominal: Soft, nontender, nondistended. Bowel sounds present. Neuro: A&O x3. No focal neurological deficits. Results & Data Results & Data Vital Signs (Past 12 Hours) Vital Signs Temp Pulse Pulse Pulse Resp BP BP 09/06/24 07:41 09/06/24 07:17 97.9 F 63 18 09/06/24 05:45 62 09/06/24 03:07 98.2 F 60 16 165/65 H 09/05/24 22:38 66 09/05/24 22:36 09/05/24 22:36 97.9 F 63 18 119/71 09/05/24 20:51 62 20 09/05/24 20:45 62 23 09/05/24 20:33 62 25 H 09/05/24 20:31 133/45 L 09/05/24 20:12 58 L 16 BP Pulse Ox O2 Del Method 09/06/24 07:41 Room Air 09/06/24 07:17 108/47 L 95 Room Air 09/06/24 05:45 09/06/24 03:07 93 Room Air 09/05/24 22:38 09/05/24 22:36 Room Air 09/05/24 22:36 95 Room Air 09/05/24 20:51 95 09/05/24 20:45 95 09/05/24 20:33 98 09/05/24 20:31 09/05/24 20:12 98 Laboratory Results Reviewed CBC Reviewed CMP PG Care Time/CCT Total # of Minutes Spent Total Time Spent with Patient: Total time spent is greater than 50% in coordination of care (as documented) at patient's floor/unit and/or counseling patient: Coding Level of Care Code 95460 SUB INP/OBS CARE 50MIN Diagnoses JEFF (acute kidney injury) N17.9 Hypertension I10 Hypertension type: unspecified Esophageal reflux K21.9 Lymphocytosis D72.820 Depression, unspecified F32.A Acute hyperkalemia E87.5 CAD (coronary artery disease) I25.10 (2) Hypertension Hypertension type: unspecified Qualified Code(s): I10 - Essential (primary) hypertension
[2024-09-06] MEDS: traMADol HCL 50 MG TABLET PO PRN (08:20)
[2024-09-06] MEDS ORDERED: NON-FORMULARY MEDICATION (Coenzyme Q10 200 mg capsule) PO SCH (09:00)
[2024-09-06] MEDS: PNEUMOCOCCAL VACCINE (PCV20) 20-VAL CONJ-DIP CRM/PF 0.5 ML SYR IM ONE (13:57)
[2024-09-06] MEDS: INFLUENZA VACC TS2024-25(65y+)/PF (IIV3) 0.5mL Syr IM ONE (14:01)
[2024-09-06] MEDS: NICOTINE 21 MG/24 HR TDSY TD SCH (17:03)
[2024-09-07 07:12] LABS: Basophils # (auto) 0.06 K/uL (0.00-0.20); Basophils % (auto) 0.7 %; Eosinophils % (auto) 2.5 %; Hematocrit (blood only) 35.9 % (37.0-47.0); Hemoglobin 12.4 g/dl (12.0-16.0); Immature Granulocytes # (auto) 0.04 K/uL (0.01-0.20); Immature Granulocytes % (auto) 0.5 %; Lymphocytes % (auto) 23.3 %; Mean Corpuscular Hemoglobin 33.2 pg (25.0-34.0); Mean Corpuscular Hgb Conc 34.5 g/dL (32.0-36.0); Mean Platelet Volume 9.2 fL (9.4-12.4); Monocytes # (auto) 0.54 K/uL (0.11-0.59); Monocytes % (auto) 6.6 %; Neutrophils # (auto) 5.42 K/uL (1.40-6.50); Neutrophils % (auto) 66.4 %; Platelet Count 272 K/uL (130-400); RDW Coefficient of Variation 12.9 % (11.5-14.5); RDW Standard Deviation 45.5 fL (36.4-46.3); Red Blood Count 3.74 M/uL (4.20-5.40); White Blood Count 8.16 K/ul (4.8-10.8)
[2024-09-07 07:51] LABS: Albumin Level 4.2 gm/dl (3.4-5.0); BUN Creatinine Ratio 20.7 (10-20); Calcium 9.2 mg/dl (8.6-10.3); Creatinine Clr Calc Pharmacy 34.3 ml/min; Magnesium 2.3 mg/dl (1.7-2.4); Phosphorus 3.8 mg/dl (2.5-4.9); Potassium 5.1 mmol/L (3.5-5.1)
[2024-09-07 08:01] LABS: INR 0.9 (0.9-1.1); Partial Thromboplastin Time 26 Seconds (21-31)
[2024-09-07 08:05] VITALS: O2SAT 96
[2024-09-07 11:22] VITALS: RESP 20; TEMP 98.4
[2024-09-07] MEDS: PATIROMER CALCIUM SORBITEX 8.4 GM PACK PO ONE (13:25)
[2024-09-07 15:08] VITALS: BP 104/62
--- NOTE | 2024-09-07 18:49 | Discharge Summary ---
Discharge Summary Date of Service September 07, 2024 Principal Dx & Hospital Course #1 = Principal Diagnosis (1) JEFF (acute kidney injury): Presented at the referral of the heart failure clinic due to worsening outpatient laboratories with concerns regarding elevated potassium and worsening kidney function after being placed on Lasix 2 weeks ago. EF=60-65%. - Outpatient labs showed potassium of 6.3 and creatinine of 1.83 - Received 500 mL bolus in ED then maintenance 500 mL NSS - Potassium now WNL at 5.1, sodium now WNL at 136, magnesium now WNL at 2.3 - BUN and creatinine remain slightly elevated, though improving at 29 and 1.40 respectively - Discontinued Lasix - Held triamterene/hydrochlorothiazide and losartan until PCP follow-up appointment - Lab slip given for outpatient BMP in 3 days (2) Hypertension: CAD/hypertension - Holding Lasix, triamterene/HCTZ and losartan as noted well - Continue aspirin and amlodipine - Intermittent asymptomatic bradycardia, on metoprolol succinate 50 mg daily > Held on 09/07 and heart rates remained normal in 50s60s - Recommended patient hold metoprolol until PCP follow-up appointment. Perhaps this could be discontinued altogether, or dose could be decreased (3) Esophageal reflux: GERD/hiatal hernia- - Suggested that she minimize acid drinks such as apple cider and Pepsi - She presently is on famotidine 40 mg in the a.m. and Carafate 1 g daily - If she has persistent symptoms of reflux despite dietary adjustments, medication adjustments can be made by increasing Carafate, and/or adding pantoprazole (4) Lymphocytosis: Peripheral blood smear shows a lymphocytosis and monocytosis with reactive features - Potential etiologies include viral infection versus stress, among others - While a reactive etiology is favored, if the lymphocyte counts continues to increase without a clinically identifiable cause, then flow cytometry may be warranted to rule out a clonal component - Lymphocytosis resolved (5) Depression, unspecified: Continue Duloxetine and clonazepam (6) Acute hyperkalemia: Potassium of 6.4 on outpatient labs - Resolved (7) CAD (coronary artery disease): Plan CODE STATUS: Full code Notes For Next Care Provider Monitor heart rates and blood pressures Lab slip given for BMP in 3 days from discharge Referral made for pulmonologyperhaps an underlying COPD component to her shortness of breath Medication Changes From Visit Discontinued Lasix Held losartan, metoprolol, triamterene HCTZ, and magnesium supplement until PCP follow-up appointment Ordered albuterol inhaler Order nicotine patch to aid in smoking cessation Admission HPI Per Admitting Provider The patient is a 73-year-old female with a past medical history including hypertension, stented coronary artery, hypercholesterolemia, CAD, anxiety, GERD, neuropathy, and shortness of breath with dyspnea on exertion. She was placed on Lasix 2 weeks ago by cardiology, and had outpatient laboratories performed today, which showed potassium 6.3 and a creatinine 1.83, and she was then referred to the ED for further assessment. Laboratories performed in the emergency department revealed a potassium of 5.2, and a creatinine of 2.24, and the patient was referred for evaluation for admission. Admission Exam Per Admitting Provider The patient is awake, alert and oriented 3, well developed and well nourished, normocephalic and atraumatic, lying in bed and in no acute distress. HEENT--PERRL, EOMI, mucous membranes and oropharynx dry Neck--supple. No JVD. No bruits. Thyroid normal, trachea midline, no adenopathy. Heart--normal S1 and S2. No murmurs, rubs or gallops. Lungs--clear bilaterally, no respiratory distress, no accessory muscle use. Abdomen--normal bowel sounds and soft. Nontender. Nondistended, no hernias or masses, no organomegaly. Extremities--no cyanosis or clubbing. No edema. There are good distal pulses b/l. Dermatologic--normal skin turgor, normal color, no abnormal lymph nodes, no rash. Neurologic--cranial nerves II through XII grossly intact. Rheumatologic--normal range of motion. Psychiatric--normal affect. Discharge Exam General: No acute distress, nondiaphoretic, well-developed, well-nourished. Skin: The skin was without rashes, erythema, edema, or bruising. Cardiac: Regular rate and rhythm without murmurs gallops or rubs. Intermittent asymptomatic bradycardia in the 40s-50s. Pulm: Expiratory wheezing bilaterally with cough. No respiratory distress. 96% on room air. Abdominal: Soft, nontender, nondistended. Bowel sounds present. Neuro: A&O x3. No focal neurological deficits. Discharge Plan Discharge Items Patient Disposition: Home - Self-Care Reason For Visit: JEFF, HYPERKALEMIA, HYPONATREMIA Discharge Diagnosis: JEFF, acute hyperkalemiaresolved Activity: Resume your previous activity Non-emergency contact: Primary Care Provider Call non-emergency contact if: you have any medication questions Follow-up/Referrals: Dusty Snyder [Primary Care Provider] - (PLEASE CALL YOUR PRIMARY CARE PROVIDER TO SCHEDULE A HOSPITAL DISCHARGE FOLLOW-UP APPOINTMENT WITHIN 7-10 DAYS) Diet: Heart Healthy Ambulatory Orders: Basic Metabolic Panel (Routine) Timeframe: 3 Days Location: Determined by Patient Ordered By: Thea Gaviria Attending Provider Instructions: Mrs. Velazquez, You were admitted to the hospital with an acute kidney injury (JEFF) and high potassium level. Your elevated potassium and worsening kidney function was likely due to to starting Lasix (a diuretic) 2 weeks ago. Your electrolytes have returned to normal, and your kidney function has significantly improved. There have been some medication changes during this hospital stay as documented below. Upon discharge from the hospital: * STOP Lasix (diuretic) * HOLD the following medicines until your PCP follow-up appointment: - Triamterene HCTZ (diuretic) - Losartan 100 mg daily - Metoprolol 50 mg daily -- this medicine helps control your heart rate and blood pressure, which both have run a little low in the hospital. Your PCP may take you off of this completely or may reduce your dose. - SlowMag (magnesium supplement) * Use albuterol inhaler as needed for shortness of breath/wheezing, instructions below. - Take 90 or 180 mcg (1 or 2 actuations of 90 mcg/actuation) inhaled by mouth every 1 hour for 2 to 3 doses, then 90 or 180 mcg (1 or 2 actuations of 90 mcg/actuation) inhaled by mouth every 2 to 4 hours as needed. * It is in your best interest to refrain from smoking cigarettes. I have sent a prescription for nicotine patches to your pharmacy. You can apply one per day. * Try to minimize or avoid these foods/drinks that may worsen your GERD: Alcohol, fatty foods, chocolate, caffeine, spearmint or peppermint, citrus or other acidic juices, sodas, peppers, garlic, onions, or similar spices. * Get blood work done in 3 days from discharge. This is to monitor your electrolytes and kidney function. A lab slip will be given to you with your discharge paperwork. You can take this to any outpatient lab. * Please follow-up with your PCP within 1 week from discharge. * Please follow-up with the heart failure clinic as scheduled. * A referral has been made for you to see pulmonology (lung doctor). Please return to the hospital if you experience any of the following: Fever of 100.5 F or higher, rapid weight loss or weight gain, such as 3 pounds or more in 24 hours or 6 pounds or more in 7 days, severe muscle aches, very little or no urine output, significant swelling of your hands, legs, feet, pain in the neck/chest/back, choking, trouble breathing, wheezing, vomiting blood or what looks like coffee grounds, black tarry stools, chest pain/pressure/tightness, lightheadedness, dizziness, confusion, or passing out. It was a pleasure taking care of you while you were in the hospital, Thea Bell PA-C Pending Studies at Discharge: No Stand-Alone Forms: [facility], Smoking Cessation Medications and DC Order Prescriptions: New nicotine [Nicoderm CQ] 21 mg/24 hr Patch 24 Hour 1 patch transdermal QAM Qty: 28 0RF albuterol sulfate 90 mcg/actuation HFA aerosol inhaler 1 - 2 puff inhalation Q4H PRN (Reason: shortness of breath or wheezing) Qty: 8.5 0RF Continued tramadol 50 mg tablet 50 mg PO Q8H PRN (Reason: pain) Qty: 90 3RF amlodipine 5 mg tablet 5 mg PO DAILY Qty: 90 3RF gabapentin 600 mg tablet 600 mg PO TID sucralfate 1 gram tablet 1 g PO DAILY Linzess 145 mcg capsule 145 mcg PO DAILY clonazepam 0.5 mg tablet 0.5 mg PO DAILY PRN (Reason: Anxiety) famotidine 40 mg tablet 40 mg PO DAILY coenzyme Q10 200 mg capsule 200 mg PO DAILY duloxetine 20 mg capsule,delayed release(DR/EC) 20 mg PO DAILY cholecalciferol (vitamin D3) 25 mcg (1,000 unit) capsule 25 mcg PO WK aspirin 81 mg tablet,delayed release (DR/EC) 81 mg PO DAILY Held Slow-Mag 71.5 mg tablet,delayed release (DR/EC) 71.5 mg PO BID Qty: 60 11RF Hold Instructions: Resume on 09/16/24. Hold until follow-up PCP appointment triamterene-hydrochlorothiazid 37.5-25 mg capsule See Rx Instructions .ROUTE .COMPLEX Qty: 90 3RF Hold Instructions: JEFF/hyperkalemia Dose Instruction: TAKE ONE CAPSULE BY MOUTH EVERY DAY Rx Instructions: TAKE ONE CAPSULE BY MOUTH EVERY DAY metoprolol succinate 50 mg tablet extended release 24 hr 50 mg PO DAILY Hold Instructions: Resume on 09/16/24. Hold until follow-up PCP appointment losartan 100 mg tablet 100 mg PO DAILY Hold Instructions: JEFF/hyperkalemia Discontinued furosemide [Lasix] 20 mg tablet 20 mg PO DAILY PRN (Reason: weight gain, edema, shortness of breath) Qty: 30 2RF Discharge Orders: Discharge Order- CHF (Routine); Ordered 09/07/24 Ordered By: Thea Lopez/Other Patient Handouts: Acute Kidney Failure Dc, GERD Dc Admission Data Admit Date/Time: 09/05/24 21:01 Attending Provider: Enoch Vale Admit Provider: Luis Antonio Vasquez Primary Care Provider: Dusty Snyder Other Providers: Luis Antonio Vasquez Other Interventions: Discharge Summary Assessment (RN) Last Done: 09/07/24 15:05 Hospital Stay Data Consultations 09/05/24 20:22 ED Decision to Admit Stat Pending Results Patient Have Any Pending Studies at Discharge: No Discharge Instructions Given to Patient (Per Discharging Provider) Sekou Johnson were admitted to the hospital with an acute kidney injury (JEFF) and high potassium level. Your elevated potassium and worsening kidney function was likely due to to starting Lasix (a diuretic) 2 weeks ago. Your electrolytes have returned to normal, and your kidney function has significantly improved. There have been some medication changes during this hospital stay as documented below. Upon discharge from the hospital: * STOP Lasix (diuretic) * HOLD the following medicines until your PCP follow-up appointment: - Triamterene HCTZ (diuretic) - Losartan 100 mg daily - Metoprolol 50 mg daily -- this medicine helps control your heart rate and blood pressure, which both have run a little low in the hospital. Your PCP may take you off of this completely or may reduce your dose. - SlowMag (magnesium supplement) * Use albuterol inhaler as needed for shortness of breath/wheezing, instructions below. - Take 90 or 180 mcg (1 or 2 actuations of 90 mcg/actuation) inhaled by mouth every 1 hour for 2 to 3 doses, then 90 or 180 mcg (1 or 2 actuations of 90 mcg/actuation) inhaled by mouth every 2 to 4 hours as needed. * It is in your best interest to refrain from smoking cigarettes. I have sent a prescription for nicotine patches to your pharmacy. You can apply one per day. * Try to minimize or avoid these foods/drinks that may worsen your GERD: A lcohol, fatty foods, chocolate, caffeine, spearmint or peppermint, citrus or other acidic juices, sodas, peppers, garlic, onions, or similar spices. * Get blood work done in 3 days from discharge. This is to monitor your electrolytes and kidney function. A lab slip will be given to you with your discharge paperwork. You can take this to any outpatient lab. * Please follow-up with your PCP within 1 week from discharge. * Please follow-up with the heart failure clinic as scheduled. * A referral has been made for you to see pulmonology (lung doctor). Please return to the hospital if you experience any of the following: Fever of 100.5 F or higher, rapid weight loss or weight gain, such as 3 pounds or more in 24 hours or 6 pounds or more in 7 days, severe muscle aches, very little or no urine output, significant swelling of your hands, legs, feet, pain in the neck/chest/back, choking, trouble breathing, wheezing, vomiting blood or what looks like coffee grounds, black tarry stools, chest pain/pressure/tightness, lightheadedness, dizziness, confusion, or passing out. It was a pleasure taking care of you while you were in the hospital, Thea Bell PA-C Total Time Total Time Spent Total Time Spent (In Minutes): Greater than 30 minutes spent completing this discharge process including direct patient care, medication reconciliation, documentation, review of labs and images, and coordination of care. Coding Level of Care Code 67383 INP/OBS DISCH >30 MIN Diagnoses JEFF (acute kidney injury) N17.9 Hypertension I10 Hypertension type: unspecified Esophageal reflux K21.9 Lymphocytosis D72.820 Depression, unspecified F32.A Acute hyperkalemia E87.5 CAD (coronary artery disease) I25.10
[2024-09-07 19:40] VITALS: PULSE 61
--- NOTE | 2024-09-08 05:57 | Electrocardiogram Report ---
Test Reason : Blood Pressure : */* mmHG Vent. Rate : 59 BPM Atrial Rate : 59 BPM P-R Int : 140 ms QRS Dur : 80 ms QT Int : 430 ms P-R-T Axes : 76 50 54 degrees QTcB Int : 425 ms Poor data quality, interpretation may be adversely affected Sinus bradycardia Otherwise normal ECG When compared with ECG of 01-Apr-2023 12:39, No significant change was found Confirmed by Nilson Woods ([id number]) on 09/08/2024 5:56:55 AM Referred By: REFERRED SELF Confirmed By: Nilson Woods
== END 2024-09-07 16:06 | disposition home or self-care (01) ==
LOC: 2N 17:46 → ED 17:46 → SUATTDRO 21:01 → 2N 21:43

== ENCOUNTER 2024-10-13 08:00 | Observation (INO) ==
--- NOTE | 2024-10-13 10:44 | History & Physical Report ---
Date of Service October 13, 2024 Assessment & Plan (1) Acute heart failure with preserved ejection fraction: Plan: Suspect due to recent stopped diuretics HCTZ/triamterene/Lasix due to JEFF with hyperkalemia last admission and not restarted Start Lasix 40mg IV now Strict I&Os Daily weight TTE (2) Elevated troponin: Plan: Chest pain has some reproducible on palpation however story is also concerning for unstable angina vs GERD Given presumably stable (HS trop 85 in [facility]) and low suspect more demand- ischemia related to HFpEF than true NSTEMI therefore IV heparin drip currently deferred However she has a good story for unstable angina with her shortness of breath and chest pain therefore will consult cardiology to consider invasive testing despite negative dobutamine stress test in May Consult cardiology TTE ordered NPO until seen by cardiology (3) Esophageal reflux: Plan: Chest apin also has a possible GERD component as appears to be worse with prednisone and holding her Carafate Give famotidine and pantoprazole IV now and continue her usual Carafate Add pantoprazole to her usual regimen ongoing (4) Hypoxia: Plan: Suspect mainly due to acute HFpEF, will defer ongoing treatment for COPD at this time as prednisone hasn't helped and may have made her GERD worse causing the increased epigastric/chest pain (5) Leukocytosis: Plan: No infection source to suggest need to continue antibiotics Suspect secondary to recently starting prednisone as outpatient (6) Hypomagnesemia: Plan: Secondary to recent discontinued magnesium supplementation, suspect she needs to go back on this but perhaps at a lower dose Will restart Slow mag 72 mg once daily Mg sulfate 2g IV now Repeat levels in AM (7) Abnormal CT scan, pelvis: Plan: Bladder lesion seen on CT - recommend urology follow up Plan VTE Prophylaxis - Lovenox 40mg SQ daily Diet - NPO pending cardiology evaluation Disposition - admit to PCU Admission and Anticipated Discharge Date Admission Date: October 13, 2024 History of Present Illness Chief Complaint: Shortness of breath Chest pain Primary Care Provider: Dusty Snyder Lauren Estuardokayla is a 73 year old female with chronic HFpEF, chronic bronchitis who presents to [facility] ER with shortness of breath and epigastric/chest pain. She finds it difficult to give me exact timelines of events but in general she notes severe epigastric/lower chest pain ongoing intermittently for the last 9 weeks. She first noticed it at rest while watching a TV show and it would last for minutes at a time. She reports associated shortness of breath with the pain. Worse on exertion, improved with rest. The episode have been more frequent and lasting longer. Improves on leaning forward. She also feels famotidine helps. The episode last night was the most severe it had been and lasted for hours starting at 10pm which prompted her visit to [facility]. She continues to notice mild pain currently. In the ER there was concern for sepsis with her elevated WBC (although notably had just started a prednisone course with her PCP yesterday). She was given IV Zosyn and IV vancomycin was ordered but never given. She was not given any fluid bolus due to concerns for congestive heart failure. She was noted to be hypoxic and started on 2LPM O2. CT chest for PE and A/P with IV contrast with impression below but main finding was mild interstitial pulmonary edema. There was some concern for COPD exacerbation and she was given Solu-Medrol 125mg IV but no nebulizer. Flu and SARS-COV-2 PCR were negative. High sensitivity troponin I 85 therefore her case was discussed with the investor relations specialist hospitalist here for transfer due to no cardiology coverage at [facility]. She notably was recently admitted from September 05 - 2023 due to Acute kidney injury (Cr 1.83 , baseline 0.62), hyperkalemia (6.3) and dehydration suspected to be from recent addition of Lasix for possible heart failure. Lasix, triamterene, HCTZ, losartan and magnesium supplementation were held until PCP follow up. She reports not restarting on any of these and her family have noticed she has been getting much more swollen. She reports 6-7lb of weight gain since her last admission but feels she has been eating much more since giving up smoking. She was recently seen by pulmonology for possible COPD causing her symptoms however spirometry was indeterminant and she has multiple upcoming tests in October. Allergies Allergy/AdvReac Type Severity Reaction Status Date / Time No Known Allergies Allergy Unverified 09/20/24 09:32 Home Medications Medication Instructions Recorded Confirmed Type clonazepam 0.5 mg tablet 0.5 mg PO DAILY PRN Anxiety 04/23/23 10/13/24 History coenzyme Q10 200 mg capsule 200 mg PO DAILY 04/23/23 10/13/24 History famotidine 40 mg tablet 40 mg PO DAILY 04/23/23 10/13/24 History gabapentin 600 mg tablet 600 mg PO TID 04/23/23 10/13/24 History linaclotide 145 mcg capsule 145 mcg PO DAILY 04/23/23 10/13/24 History (Linzess) sucralfate 1 gram tablet 1 g PO DAILY 04/23/23 10/13/24 History tramadol 50 mg tablet 50 mg PO Q8H PRN pain #90 tabs 01/22/24 10/13/24 Rx amlodipine 5 mg tablet 5 mg PO DAILY #90 tabs 04/22/24 10/13/24 Rx aspirin 81 mg tablet,delayed 81 mg PO DAILY 08/22/24 10/13/24 History release cholecalciferol (vitamin D3) 25 25 mcg PO WK 08/22/24 10/13/24 History mcg (1,000 unit) capsule duloxetine 20 mg capsule,delayed 20 mg PO DAILY 08/22/24 10/13/24 History release albuterol sulfate 90 mcg/actuation 1 - 2 puff inhalation Q4H PRN 09/07/24 10/13/24 Rx aerosol inhaler shortness of breath or wheezing #8.5 grams nicotine 21 mg/24 hr daily 1 patch transdermal QAM #28 ea 09/07/24 10/13/24 Rx transdermal patch (Nicoderm CQ) tiotropium bromide 2.5 2 inh inhalation QAM #4 grams 09/23/24 10/13/24 Rx mcg/actuation mist for inhalation (Spiriva Respimat) doxycycline hyclate 100 mg tablet 100 mg PO BID 10/13/24 10/13/24 History prednisone 10 mg tablet See Rx Instructions .Route .COMPLEX 10/13/24 10/13/24 History Past Med/Surg History Problem List (Updated 10/14/24 @ 06:30 by Enoch Florian MD) Esophageal reflux Chest pain Shortness of breath on exertion Leukocytosis Elevated troponin Acute heart failure with preserved ejection fraction Hypoxia Abnormal CT scan, pelvis Allergic rhinitis Tobacco abuse Chronic bronchitis Lymphocytosis Dyspnea on exertion Osteoarthritis Hypomagnesemia Hypertension Stented coronary artery Hypercholesterolemia CAD (coronary artery disease) Thoracic disc herniation (Acute 08/29/14) Abdominal pain (Acute) Intractable back pain (Acute 08/25/14) MRSA (methicillin resistant Staphylococcus aureus) (Acute) Postoperative state (Acute 03/20/14) Flank pain (Acute) Thoracic disc herniation (Acute) Medical History Depression, unspecified Esophageal reflux Hypertension Spondylolisthesis 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) Surgical History Tubal ligation status Social History Smoking Status: Former smoker Tobacco Type: Cigarettes Cigarettes Per Day: 1 pack; Smoking End Date: 3 weeks ago; Second Hand Exposure: No; Do You Dip or Chew Tobacco: No; Tobacco Cessation Education Requested by Patient: No Hx Alcohol Use: Yes Alcohol type: hard liquor Hx Substance Use: Yes Last Used Substance Other:: august Substance Use Type Other:: marijuana gummie Preferred Language: Turkmen Communication Ability: Effective Roof [employer] Required: No Beliefs That Will Affect Care: None Current Living Situation: Spouse Other Information That Helps Us Care for You: No Feels Safe at Home: Yes Safety Concerns: Feels Safe At This Time Assistive Devices: Denture - Upper, Denture - Lower and Glasses Review of Systems Review of Systems: All systems reviewed & are unremarkable except as noted in HPI & below Physical Exam Constitutional: WD/WN, vitals as above ENMT: external ear and nose normal, oropharynx normal Respiratory: normal respiratory effort; no respiratory distress Auscultation: + diminished lung sounds (bibasal); no crackles and no wheezes Cardiovascular: Rate/Rhythm: regular rate and regular rhythm Heart Sounds: no murmur Extremities: normal capillary refill and + pedal edema (1+ bilateral equal); no calf tenderness Chest (Breasts): Additional Comments: Reproducible chest pain on palpation Gastrointestinal (Abdomen): normal bowel sounds, soft, nontender, no hepatosplenomegaly Musculoskeletal: no cyanosis or clubbing, extremities motor strength 5/5 Skin: no rashes, warm and dry Neurologic: moves all extremities and awake; not confused Psychiatric: A+Ox3, euthymic affect Results & Data Results & Data Vital Signs (Past 12 Hours) Vital Signs Temp Pulse Resp BP Pulse Ox O2 Del Method O2 Flow Rate 10/13/24 09:55 36.6 C 74 16 168/78 H 97 Nasal Cannula 4 Laboratory Results Flu A, B, SARS CO-2 not detected d-dimer 707 Hgb 12 WBC 14.69 Neutrophils 11.6 Plt 284 BNP 145 BUn 17 Cr 1.11 Sodium 141 Potassium 3.4 Magnesium 1.3 Lactic acid 1.8 HS troponin I 85 Diagnostic Findings Imaging performed at [facility] CT chest for PE: Impression: 1. No signs of pulmonary embolism are appreciated 2. Mild cardiomegaly noted 3. Faint bilateral ground glass parenchymal attenuation may represent mild interstitial edema, follow up is advised 4. Moderate spondylosis of the thoracic spine CT abdomen/pelvis w/ IV contrast Impression: Mild hepatomegaly with diffuse fatty changes 2. Diffuse aortoiliac atherosclerotic changes. 3. Small umbilical hernia harboring omenta fat 4. A suspicious right urinary bladder wall small nodular lesion, which needs s onogrphic correlation and futher assessment Medications Administered ER ([facility]) Medications Given: Fentanyl 50 mcg IV Vancomycin IV ordered but never given Solu-Medrol 125mg IV Zosyn 4.5g IV ECG Rate (beats per minute): 68 Rhythm: normal sinus Findings: + other (Non specific T wave flattening in lateral leads) and + PVC Comparison ECG Date: from (September 05, 2024) Change: the following changes noted (Suspect non specific T wave flattening due to leads placement) Code Status & VTE Plan Code Status Full VTE Prophylaxis Plan VTE Prophylaxis will be ordered: Yes PG Care Time/CCT Total # of Minutes Spent Total Time Spent with Patient: Total time spent is greater than 50% in coordination of care (as documented) at patient's floor/unit and/or counseling patient: Coding Level of Care Code 85940 INT INP/OBS CARE 3/75MIN Diagnoses Acute heart failure with preserved ejection fraction I50.31 Elevated troponin R79.89 Esophageal reflux K21.9 Hypoxia R09.02 Leukocytosis D72.[address] scan, pelvis R93.5
[2024-10-13 11:11] LABS: Basophils # (auto) 0.06 K/uL (0.00-0.20); Basophils % (auto) 0.4 %; Hematocrit (blood only) 35.5 % (37.0-47.0); Hemoglobin 12.1 g/dl (12.0-16.0); Immature Granulocytes # (auto) 0.11 K/uL (0.01-0.20); Immature Granulocytes % (auto) 0.8 %; Lymphocytes # (auto) 1.27 K/uL (1.20-3.40); Lymphocytes % (auto) 8.7 %; Mean Corpuscular Hemoglobin 31.1 pg (25.0-34.0); Mean Corpuscular Hgb Conc 34.1 g/dL (32.0-36.0); Mean Corpuscular Volume 91.3 fL (80.0-100.0); Mean Platelet Volume 9.1 fL (9.4-12.4); Neutrophils # (auto) 12.91 K/uL (1.40-6.50); Neutrophils % (auto) 88.1 %; Platelet Count 285 K/uL (130-400); RDW Coefficient of Variation 12.3 % (11.5-14.5); Red Blood Count 3.89 M/uL (4.20-5.40); White Blood Count 14.65 K/ul (4.8-10.8)
--- NOTE | 2024-10-13 11:17 | XRay Report ---
EXAM: Radiograph of the Chest 1 View INDICATION: Chest pain. TECHNIQUE: Frontal view of the chest. COMPARISON: 09/05/2024 FINDINGS: Lungs and pleural spaces: Increased diffuse interstitial markings noted with possible early pulmonary edema. No confluent consolidation. Probable trace pleural effusions. No pneumothorax. Heart: Stable cardiac shadow. Mediastinum: Normal contour. Bones/joints: Degenerative changes noted throughout the spine. No acute osseous abnormality seen. Soft tissues: No abnormality noted. No radiopaque foreign body noted. Upper abdomen: No abnormality noted. IMPRESSION: Mild pulmonary edema. Developing CHF considered. ACT 112: Negative or not required by law. Electronically signed by Sherrie Dang 10-13-2024 11:17 AM
[2024-10-13 11:28] LABS: Albumin Globulin Ratio 1.4 (0.9-2); Albumin Level 4.2 gm/dl (3.4-5.0); BUN Creatinine Ratio 19.8 (10-20); Bilirubin,Total 0.4 mg/dl (0.2-1.0); Calcium 9.5 mg/dl (8.6-10.3); Magnesium 1.5 mg/dl (1.7-2.4); Total Protein 7.2 gm/dl (6.0-8.3)
[2024-10-13 11:44] LABS: INR 0.9 (0.9-1.1); Partial Thromboplastin Ratio 0.9; Partial Thromboplastin Time 25 Seconds (21-31); Prothrombin Time 10.2 Seconds (9.0-12.0)
[2024-10-13 11:46] LABS: Troponin I High Sensitivity 79.7 pg/ml (0-14)
[2024-10-13 12:03] LABS: C Reactive Protein 1.68 mg/dl (0-0.5)
[2024-10-13] MEDS: ACETAMINOPHEN 500 MG TAB PO STA (12:40)
[2024-10-13] MEDS: NITROGLYCERIN SL 0.4 MG/TAB TAB SL STA (12:41)
[2024-10-13] MEDS: FUROSEMIDE 40 MG/4 ML VIAL IV STA (12:42)
[2024-10-13] MEDS: PANTOprazole 40 MG/10 ML SYR IV ONE (12:54)
[2024-10-13] MEDS: FAMOTIDINE 20MG IV PUSH 20 MG/5 ML SYR IV ONE (12:58)
[2024-10-13] MEDS: MAGNESIUM SULFATE / D5W 1 GM/100 ML BAG IV ONE (12:59)
[2024-10-13] MEDS: GABAPENTIN 600 MG TAB PO STA (13:03)
[2024-10-13] MEDS: SUCRALFATE 1 GM TAB PO SCH (16:45)
[2024-10-13] MEDS ORDERED: clonazePAM 0.5 MG TAB PO PRN (16:46)
[2024-10-13] MEDS ORDERED: ALBUTEROL HFA 8 GM INHALER INH PRN (16:46)
[2024-10-13] MEDS: DULoxetine HCL 20 MG CAP PO SCH (17:52)
[2024-10-13 18:44] LABS: Appearance Urine Clear (Clear); Bilirubin Urine Negative (Negative); Blood Urine Negative (Negative); Color Urine Yellow; Glucose Urine UA Negative (Negative); Ketones Urine Negative (Negative); Leukocyte Esterase Urine Negative (Negative); Nitrite Urine Negative (Negative); Protein Urine Negative (Negative); Urobilinogen Urine Negative (Negative)
[2024-10-13] MEDS: GABAPENTIN 600 MG TAB PO SCH (21:18)
[2024-10-13] MEDS: ACETAMINOPHEN 325 MG TAB PO PRN (21:21)
--- NOTE | 2024-10-14 06:39 | Communication Note ---
Date of Service: October 14, 2024 Notified by nursing of complaint of recurrent chest pain. Evaluated pt at bedside- notes mid sternal, burning. Similar pain to what she was having yeste rday. Heart with RRR and lungs clear B/L. Repeat EKG with new ST depression. Repeat troponin is pending. Given nitro x1 with near resolution of pain. Will plan to start on heparin gtt. Cardiology consulted.
[2024-10-14 06:42] LABS: Basophils # (auto) 0.06 K/uL (0.00-0.20); Basophils % (auto) 0.3 %; Hematocrit (blood only) 36.1 % (37.0-47.0); Hemoglobin 12.2 g/dl (12.0-16.0); Immature Granulocytes # (auto) 0.14 K/uL (0.01-0.20); Immature Granulocytes % (auto) 0.7 %; Lymphocytes # (auto) 3.12 K/uL (1.20-3.40); Lymphocytes % (auto) 16.5 %; Mean Corpuscular Hgb Conc 33.8 g/dL (32.0-36.0); Mean Corpuscular Volume 91.6 fL (80.0-100.0); Mean Platelet Volume 9.1 fL (9.4-12.4); Monocytes # (auto) 0.89 K/uL (0.11-0.59); Monocytes % (auto) 4.7 %; Neutrophils % (auto) 77.8 %; Platelet Count 319 K/uL (130-400); RDW Coefficient of Variation 12.4 % (11.5-14.5); RDW Standard Deviation 41.1 fL (36.4-46.3); Red Blood Count 3.94 M/uL (4.20-5.40); White Blood Count 18.91 K/ul (4.8-10.8)
[2024-10-14] MEDS: NITROGLYCERIN SL 0.4 MG/TAB TAB SL PRN (06:42)
[2024-10-14 07:00] LABS: BUN Creatinine Ratio 19.3 (10-20); Calcium 9.4 mg/dl (8.6-10.3); Creatinine Clr Calc Pharmacy 43.9 ml/min; Magnesium 1.8 mg/dl (1.7-2.4); Potassium 3.9 mmol/L (3.5-5.1)
[2024-10-14] MEDS: ASPIRIN 81 MG ECTAB PO SCH (07:37)
[2024-10-14] MEDS: FAMOTIDINE 40 MG TABLET PO SCH (07:37)
[2024-10-14] MEDS: PANTOprazole 40 MG TAB PO SCH (07:38)
[2024-10-14] MEDS: UMECLIDINIUM BROMIDE 62.5MCG/BLISTER 7 PUFFS/INHALER INH SCH (07:38)
[2024-10-14] MEDS: METOPROLOL TARTRATE 25 MG TAB PO STA (07:43)
[2024-10-14] MEDS: HEPARIN SODIUM/DEXTROSE 25,000 UNITS/500 ML BAG IV SCH (07:44)
[2024-10-14] MEDS: HEPARIN SOD (PORCINE) 1000 UNIT/ML IV ONE (07:44)
[2024-10-14] MEDS: Heparin IV Adult Wt-Based Standard w/ INITIAL Bolus Protocol IV STA (08:41)
[2024-10-14] MEDS: FUROSEMIDE 40 MG/4 ML VIAL IV SCH (09:31)
[2024-10-14] MEDS: LINACLOTIDE 145 MCG CAPSULE PO SCH (09:34)
[2024-10-14] MEDS: amLODIPine BESYLATE 5 MG TAB PO SCH (09:34)
--- NOTE | 2024-10-14 11:18 | XCELERA ---
[id number]
--- NOTE | 2024-10-14 11:24 | Hospitalist Progress Note ---
Date of Service October 14, 2024 Assessment & Plan (1) Acute heart failure with preserved ejection fraction: Plan: I do not believe she has acute CHF despite radiologist interpretive chest x-ray on admission. Continue to monitor intake and output (2) Elevated troponin: Plan: Possible non-ST elevation SD. Cardiology consultation requested. Cardiac echo report pending. Telemetry. She is now on a heparin drip and metoprolol has been started. She will remain on amlodipine for now. (3) Esophageal reflux: Plan: possible GERD component to chest pain. Appears to be worse with prednisone and holding her Carafate. Continue PPI and Carafate therapy. Continue famotidine. (4) Hypoxia: Plan: Resolved. She is now on room air. She does have underlying COPD and is a smoker. (5) Leukocytosis: Plan: No evidence of acute infection. Serial labs. Probably due to recent prednisone use (6) Hypomagnesemia: Plan: Parenteral and oral supplementation ordered. Serial labs (7) Abnormal CT scan, pelvis: Plan: Bladder lesion seen on CT - recommend urology follow up Plan To be determined Admission and Anticipated Discharge Date Admission Date: October 13, 2024 Subjective Alert and oriented. Hemodynamically stable. She has palpable midsternal chest pain but I suspect she also has suffered a non-ST elevation SD. EKG has been done several times and reveals dynamic ST and T wave changes. She has had previous coronary stenting done in [place]. She is now on a heparin drip and low-dose metoprolol has been started. Cardiology consultation is ordered and pending. Cardiac echo report is pending. Review of Systems 2 Review of Systems: Constitutionalno fever or chills ENTno blurred vision, no double vision, no epistaxis, no sore throat Respiratoryno cough, no wheezing, no shortness of breath Cardiacno palpitations, no syncope. She has both palpable midsternal chest discomfort and also has nonpalpable intermittent chest discomfort Negrita nausea, vomiting, diarrhea, melena, hematochezia GUno urinary retention, no urinary incontinence, no dysuria, no hematuria Musculoskeletalno joint pain, no muscle tenderness Skinno bruising, no rashes, no pruritus Neurono isolated weakness, no paresthesia, no weakness Psychno depression, no anxiety Physical Exam 2 Physical Exam: General-alert and oriented x3, no fever, no chills HEENT-head atraumatic and normocephalic, pupils equal and reactive to light, extraocular muscles intact Neck-no lymphadenopathy or thyromegaly, trachea midline Chest-clear to auscultation. No rales, wheezing or rhonchi Cardiac-regular rate and rhythm, normal S1 and S2 Musculoskeletaltender to palpation in the sternal area Abdomen-normal bowel sounds, no hepatosplenomegaly Extremities-no cyanosis, clubbing, or edema Neuro-cranial nerves II through XII intact, motor and sensory function within normal limits, strength symmetrical, no focal deficits Psych-normal affect, normal mood Results & Data Results & Data Vital Signs (Past 12 Hours) Vital Signs Temp Pulse Pulse Resp BP Pulse Ox O2 Del Method 10/14/24 08:00 36.8 C 70 18 123/67 94 Room Air 10/14/24 07:57 80 10/14/24 04:23 36.6 C 70 18 133/73 94 Room Air Laboratory Results 10/14/24 06:26 10/14/24 06:26 PG Care Time/CCT Total # of Minutes Spent Total Time Spent with Patient: Total time spent is greater than 50% in coordination of care (as documented) at patient's floor/unit and/or counseling patient: Coding Level of Care Code 28524 SUB INP/OBS CARE 3/50MIN Diagnoses Acute heart failure with preserved ejection fraction I50.31 Elevated troponin R79.89 Esophageal reflux K21.9 Hypoxia R09.02 Leukocytosis D72.[address] scan, pelvis R93.5
--- NOTE | 2024-10-14 11:25 | Cardiology Consultation ---
Date of Consultation October 14, 2024 Assessment & Plan (1) Chest pain: (2) Elevated troponin: (3) CAD (coronary artery disease): (4) Dyspnea on exertion: (5) Acute heart failure with preserved ejection fraction: Plan 1. Chest pain: This is very suggestive of progression of coronary artery disease. With chest discomfort, elevated troponin measurements (even though in a descending pattern) and electrocardiographic abnormalities on today's ECG I believe this represents progression of coronary disease. Invasive evaluation is indicated and I have discussed this with Dr. Leslie and the patient, both are in agreement. We will proceed to catheterization. 2. Elevated troponin: Although her troponin was not terribly elevated and it decreased suggesting significant ischemia rather than acute myocardial infarction I think this needs to be investigated. 3. Coronary disease: She has known coronary disease with an intervention in the past, despite a negative stress test earlier this year I suspect she has had progression. Stress tests can have false negatives. 4. Dyspnea on exertion: She has been having dyspnea on exertion and had a negative stress test, the stress test may have missed ischemia and that could explain her dyspnea on exertion. 5. CHF: She may have presented in mild congestive heart failure, possibly related to discontinuation of diuretics. I would not aggressively diurese, she probably needs a low-dose of diuretic but not a lot. History of Present Illness Reason for Consultation: Chest pain, elevated troponin Attending Physician: Saqib Hodges MD History of Present Illness This is a 73-year-old woman with a history of hypertension, hyperlipidemia and coronary artery disease including intervention in 2016. She did have a nuclear stress test on April 06, 2024 without evidence of myocardial infarction or ischemia. She follows Dr. Cohen in our office. She was seen in our office September 05, 2024 as a follow-up for dyspnea which she was having with exertion, apparently improved with the use of pulmonary medications. She does follow with pulmonary. She did not appear to be in significant heart failure. She was hospitalized that day with acute kidney injury and elevated potassium having been placed on Lasix several weeks before. Her Lasix was discontinued and her triamterene/hydrochlorothiazide and losartan were held pending follow-up. She was also bradycardic and her metoprolol succinate 50 mg daily was held. I do not believe these drugs had been restarted. She presents now with chest discomfort and shortness of breath. Her presenting electrocardiogram shows sinus rhythm with a sinus arrhythmia and nonspecific ST-T abnormalities. A repeat electrocardiogram this morning shows sinus tachycardia just over [address]-T abnormalities. Of note she was describing chest discomfort prompting this electrocardiogram. Her chest x-ray on presentation shows possible early pulmonary edema although not dramatic. Laboratory studies included essentially normal electrolytes and a mildly elevated troponin in a descending pattern (79.7 decreasing to 25 over 20 hours) and a BNP was elevated at 402. Weight was stable. She describes significant chest discomfort preceding her presentation, her description of shortness of breath associated with chest heaviness would be consistent with angina. This also occurred this morning when she had her electrocardiogram performed. This has been progressive over the last month or 2, prior to that she was having shortness of breath but not chest pain. She does not have orthopnea, PND, palpitations or lightheadedness. Allergies Allergy/AdvReac Type Severity Reaction Status Date / Time No Known Allergies Allergy Unverified 09/20/24 09:32 Home Medications Medication Instructions Recorded Confirmed Type clonazepam 0.5 mg tablet 0.5 mg PO DAILY PRN Anxiety 04/23/23 10/13/24 History coenzyme Q10 200 mg capsule 200 mg PO DAILY 04/23/23 10/13/24 History famotidine 40 mg tablet 40 mg PO DAILY 04/23/23 10/13/24 History gabapentin 600 mg tablet 600 mg PO TID 04/23/23 10/13/24 History linaclotide 145 mcg capsule 145 mcg PO DAILY 04/23/23 10/13/24 History (Linzess) sucralfate 1 gram tablet 1 g PO DAILY 04/23/23 10/13/24 History tramadol 50 mg tablet 50 mg PO Q8H PRN pain #90 tabs 01/22/24 10/13/24 Rx amlodipine 5 mg tablet 5 mg PO DAILY #90 tabs 04/22/24 10/13/24 Rx aspirin 81 mg tablet,delayed 81 mg PO DAILY 08/22/24 10/13/24 History release cholecalciferol (vitamin D3) 25 25 mcg PO WK 08/22/24 10/13/24 History mcg (1,000 unit) capsule duloxetine 20 mg capsule,delayed 20 mg PO DAILY 08/22/24 10/13/24 History release albuterol sulfate 90 mcg/actuation 1 - 2 puff inhalation Q4H PRN 09/07/24 1 12/13/23 Rx aerosol inhaler shortness of breath or wheezing #8.5 grams nicotine 21 mg/24 hr daily 1 patch transdermal QAM #28 ea 09/07/24 10/13/24 Rx transdermal patch (Nicoderm CQ) tiotropium bromide 2.5 2 inh inhalation QAM #4 grams 09/23/24 10/13/24 Rx mcg/actuation mist for inhalation (Spiriva Respimat) doxycycline hyclate 100 mg tablet 100 mg PO BID 10/13/24 10/13/24 History prednisone 10 mg tablet See Rx Instructions .Route .COMPLEX 10/13/24 10/13/24 History Patient History Medical History Acute hyperkalemia Shortness of breath Spondylolisthesis Depression, unspecified Surgical History Tubal ligation status Social History Smoking Status: Former smoker Tobacco Type: Cigarettes Cigarettes Per Day: 1 pack; Smoking End Date: 3 weeks ago; Second Hand Exposure: No; Do You Dip or Chew Tobacco: No; Tobacco Cessation Education Requested by Patient: No Hx Alcohol Use: Yes Alcohol type: hard liquor Hx Substance Use: Yes Last Used Substance Other:: august Substance Use Type Other:: marijuana gummie Preferred Language: Uzbek Communication Ability: Effective Insurance Job Titles Required: No Beliefs That Will Affect Care: None Current Living Situation: Spouse Other Information That Helps Us Care for You: No Feels Safe at Home: Yes Safety Concerns: Feels Safe At This Time Assistive Devices: Cane and Walker Review of Systems Review of Systems: All systems reviewed & are unremarkable except as noted in HPI & below Physical Exam Physical Exam: Constitutional: Alert, cooperative and in no distress. HEENT: Unremarkable Neck: No jugular venous distention, carotid pulses are normal and equal bilaterally without bruits. Pulmonary: Clear to auscultation bilaterally. Cardiac: Regular rhythm with no murmur, gallop or rub. Abdomen: Soft, nontender with normal bowel sounds. Extremities: No edema. Distal pulses intact. Neurologic: No focal findings. Gait is steady. Skin: No rash, ecchymoses or petechiae. Results & Data Vital Signs (Past 12 Hours) Vital Signs Temp Pulse Pulse Resp BP Pulse Ox O2 Del Method 10/14/24 08:00 36.8 C 70 18 123/67 94 Room Air 10/14/24 07:57 80 10/14/24 04:23 36.6 C 70 18 133/73 94 Room Air Laboratory Results Cardiac Enzymes 10/13/24 10/13/24 10/14/24 Range/Units 17:02 22:44 06:26 Troponin I High Sens 47.8 H D 35.3 H D 25.5 H (0-14) pg/ml CBC 10/14/24 Range/Units 06:26 WBC 18.91 H (4.8-10.8) K/ul RBC 3.94 L (4.20-5.40) M/uL Hgb 12.2 (12.0-16.0) g/dl Hct 36.1 L (37.0-47.0) % Plt Count 319 (130-400) K/uL Neut # (Auto) 14.70 H (1.40-6.50) K/uL Lymph # (Auto) 3.12 (1.20-3.40) K/uL [place] # (Auto) 0.89 H (0.11-0.59) K/uL Eos # (Auto) 0.00 (0.00-0.50) K/uL Baso # (Auto) 0.06 (0.00-0.20) K/uL Comprehensive Metabolic Panel 10/14/24 Range/Units 06:26 Sodium 141 (136-145) mmol/L Potassium 3.9 (3.5-5.1) mmol/L Chloride 103 (98-107) mmol/L Carbon Dioxide 27 (21-32) mmol/L BUN 21 (6-23) mg/dl Creatinine 1.09 (0.6-1.2) mg/dl Glucose 128 H (70-99(Fasting)) mg/dl Calcium 9.4 (8.6-10.3) mg/dl Intake and Output 10/13/24 10/14/24 10/14/24 22:59 06:59 14:59 Intake Total 200 / 300 96.95 / 96.95 Output Total 1200 / 1200 Balance -1000 / -900 96.95 / 96.95 Intake: IV 96.95 / 96.95 Heparin Sodium/Dextrose 25,000 96.95 / 96.95 units In 500 ml @ 1,050 UNITS/ HR 21 mls/hr IV .[id number] [facility] Rx #:[id number] Oral 200 / 200 Output: Urine 1200 / 1200 Other: Weight 78.7 kg Weight Measurement Method Standing Scale Diagnostic Findings Telemetry: Sinus rhythm with PVCs Echocardiogram: Her echocardiogram shows normal left ventricular size with concentric left ventricular hypertrophy and normal left ventricular function without wall motion abnormalities. PG Care Time/CCT Total # of Minutes Spent Total Time Spent with Patient: Total time spent is greater than 50% in coordination of care (as documented) at patient's floor/unit and/or counseling patient: Coding Level of Care Code 90515 INT INP/OBS CARE 3/75MIN Diagnoses Chest pain R07.9 Elevated troponin R79.89 CAD (coronary artery disease) I25.10 Dyspnea on exertion R06.09 Acute heart failure with preserved ejection fraction I50.31
--- NOTE | 2024-10-14 12:37 | Pre Anesthesia Assessment ---
Date of Service October 14, 2024 Pre Sedation Assessment Vital Signs Temp Pulse Pulse Resp BP Pulse Ox O2 Del Method 10/14/24 08:00 98.2 F 70 18 123/67 94 Room Air 10/14/24 07:57 80 10/14/24 04:23 97.9 F 70 18 133/73 94 Room Air 10/13/24 22:33 98.2 F 76 18 121/62 94 Room Air 10/13/24 21:54 74 10/13/24 21:00 Nasal Cannula 10/13/24 20:09 98.2 F 70 18 166/80 H 98 Nasal Cannula 10/13/24 15:52 97.9 F 75 16 149/78 H 98 Nasal Cannula 10/13/24 15:01 65 O2 Flow Rate 10/14/24 08:00 10/14/24 07:57 10/14/24 04:23 10/13/24 22:33 10/13/24 21:54 10/13/24 21:00 10/13/24 20:09 4 10/13/24 15:52 4 10/13/24 15:01 Cardiovascular + regular rate Respiratory + respiratory effort normal Pre-Sedation Airway Assessment Smoking Status: Former smoker Hx Sleep Apnea: No Hx Difficult Intubation: No Short, Thick Neck: No Thyromental Distance: < 3.5 Finger Breadths Oral Cavity: + Dental Abnormalities Mallampati Class: III ASA: ASA3 Procedure Planning Contraindications for Sedation: none Current Medications Reviewed: Yes Notes The planned sedation has been discussed with the patient. Informed Consent was obtained. I have identified the patient, determined the appropriateness of sedation and have assessed the patient immediately prior to the procedure. All medicine(s) and interventions are by my order.
[2024-10-14] MEDS: fentaNYL citrate PF 100 MCG/2 ML VIAL ONE (12:53)
[2024-10-14] MEDS: MIDAZOLAM HCL 1 MG/ML 2ML VIAL ONE (12:54)
[2024-10-14] MEDS: niCARdipine HCL INJ 2.5 MG/ML 10 ML AMP ONE (12:54)
[2024-10-14] MEDS: HEPARIN (PORCINE) 1000 UNIT/ML 10 ML (CATH LAB USE ONLY) ONE (12:54)
[2024-10-14] MEDS: NITROGLYCERIN/D5W 100MCG/ML 20ML SYR ONE (12:55)
[2024-10-14] MEDS: IODIXANOL (VISIPAQUE) 320 MG/ML 100ML IV ONE (12:58)
--- NOTE | 2024-10-14 13:07 | Post Anesthesia Assessment ---
Date of Service October 14, 2024 Post Sedation Assessment Vital Signs Temp Pulse Pulse Resp BP Pulse Ox O2 Del Method 10/14/24 08:00 98.2 F 70 18 123/67 94 Room Air 10/14/24 07:57 80 10/14/24 04:23 97.9 F 70 18 133/73 94 Room Air 10/13/24 22:33 98.2 F 76 18 121/62 94 Room Air 10/13/24 21:54 74 10/13/24 21:00 Nasal Cannula 10/13/24 20:09 98.2 F 70 18 166/80 H 98 Nasal Cannula 10/13/24 15:52 97.9 F 75 16 149/78 H 98 Nasal Cannula 10/13/24 15:01 65 O2 Flow Rate 10/14/24 08:00 10/14/24 07:57 10/14/24 04:23 10/13/24 22:33 10/13/24 21:54 10/13/24 21:00 10/13/24 20:09 4 10/13/24 15:52 4 10/13/24 15:01 Recovery Score Activity: Moves 4 extremities Respiration: Deep Breath/Cough Circulation: +/-20% PreAnes Value Consciousness: Fully Awake Oxygen Saturation: O2 needed for >90% Discharge Sedation Level of Care: Fast Track Phase II Post Sedation Plan On clinical assessment, the patient appears to have tolerated the sedation without complications. Patient is recovering as anticipated. Patient will continue to be monitored by nursing and may be discharged when sedation discharge criteria are met per below protocol. Upon Completions of procedure up to 15 minutes continue every 5 minute vital signs and the P.A.R. score; then discharge to a Phase I or Fast Track to Phase II per the following guidelines: * Discharge Patient to appropriate Phase II area if PAR is 8 or greater or return to pre- procedure baseline. The post - procedure orders will be as directed. * If PAR score is less than 8 or not return to pre-procedure baseline then patient will follow Phase I monitoring till PAR is reached for Phase II. The Phase I may be done in procedure room or may call to secure a Phase I area. * If naloxone or flumazenil are used for reversal, hold in Phase I for continued monitoring from when last reversal dose was given for a minimum of 60 minutes or longer pending the nurse and/or physician discretion of patient condition before discharge to Phase II. Please call the Sedation Physician to re-evaluate and complete post-note for discharge to Phase II area. Do NOT discharge from procedure sedation or Phase 1 until post- sedation evaluation note is complete by procedure /sedation MD Sedation Discharge Instructions to be given to the patient at discharge to home.
--- NOTE | 2024-10-14 13:19 | Cardiac Catheterization ---
[facility] Data: [place] Worker Cardiac Status Clinical evaluation leading to the procedure CAD Presenation: Non STEMI Anginal Classification: CCS IV Diagnostic Physicians Name: Bryce Leslie MD Closure Device Recommendations: CABG Cardiac Cath Procedure Full Procedure Date October 14, 2024 Pre-Procedure Diagnosis Pre-Procedure Diagnosis: Acute Coronary Syndrome AUC Score AUC Score: 8 Post-Procedure Diagnosis Post-Procedure Diagnosis: Severe CAD and Elevated Intracardiac Pressures Procedure(s) Performed Procedure(s) Performed: Coronary Angiography and Left Heart Cath Smart [employer] Specialist Bryce Leslie MD Ripsaw Grader(s) [place] Estimated Blood Loss Estimated Blood Loss: 5 Medication(s) Medication(s): Fentanyl, Heparin, Lidocaine 1%, Nicardipine, Nitroglycerin and Versed Summary of Findings Indication: ACS, accelerating angina Access: 6 Fr slender right radial artery Catheters: [place] Findings: LM -calcified, diffuse disease up to 90% distal just prior to bifurcation LAD -medium caliber, 50-60% stenosis lateproximal at takeoff of D1. Remainder of LAD without significant disease and wraps around apex. Medium D1 without disease. Circumflex -medium caliber, 50% mid segment stenosis into OM2. Large OM2 without significant disease. RCA -dominant, small to medium caliber, 30% proximal, earlymid stent widely patent 40-50% mid segment stenosis just after stent prior to takeoff of acute marginal. Remainder of RCA without significant disease. Small RPDA, RPLB without significant disease. LVEDP -18 Arterial Closure: TR band Summary: 1. Severe multivessel coronary artery disease -Diffuse left main disease up to 90% distal at bifurcation 50-60% lateproximal LAD at bifurcation with D1 50% mid circumflex Widely patent earlymid RCA stent 2. Borderline intracardiac filling pressure (LVEDP 18) Recommendations: Transfer to tertiary center for consideration of CABG Hemodynamics Rest Ao:: 129/60/89 Final Ao: 134/56/77 LV: 142/18 Recommendations Recommendations: CABG Radiation Exposure (mGy) 529 Contrast (mls) 70 Anesthesia Moderate 1060-8557 Procedural Complication(s) None Disposition PCU I attest to the content of the Intraoperative Record and any orders documented therein. Any exceptions are noted below. [employer] Card Cath Procedure Codes Cardiac Catheterization Procedure 1: Cardiovascular Cath Procedures: 09185 Coronaries and LHC (+/-LV) Moderate Sedation Procedure 1: Sedation/Anesthesia: 01393 Mod Sedation by the same physician;Init15 Min Child Age 5 & Up PG Care Time/CCT Total # of Minutes Spent Total Time Spent with Patient: Total time spent is greater than 50% in coordination of care (as documented) at patient's floor/unit and/or counseling patient:
[2024-10-14] MEDS: OPTIRAY 350 ONE (13:21)
[2024-10-14 13:56] VITALS: TEMP 97.9
--- NOTE | 2024-10-14 14:27 | Discharge Summary ---
Discharge Summary Date of Service October 14, 2024 Principal Dx & Hospital Course #1 = Principal Diagnosis (1) Acute heart failure with preserved ejection fraction: I do not believe she has acute CHF despite radiologist interpretive chest x-ray on admission. Continue to monitor intake and output (2) Elevated troponin: Suspect non-ST elevation [place]. Cardiology consultation appreciated. Cardiac echo reveals mild LVH with normal ejection fraction and no evidence of regional wall motion abnormalities. However, left heart catheterization was completed today, October 14, revealing critical stenosis of the left main trunk. She will need transfer to [facility] for coronary artery bypass grafting. She remains on heparin drip and metoprolol therapy and currently is pain-free. Telemetry. She will also remain on amlodipine for now. (3) Esophageal reflux: possible GERD component to chest pain. Appears to be worse with prednisone and holding her Carafate. Continue PPI and Carafate therapy. Continue famotidine. (4) Hypoxia: Resolved. She is now on room air. She does have underlying COPD and is a smoker. (5) Leukocytosis: No evidence of acute infection. Serial labs. Probably due to recent prednisone use (6) Hypomagnesemia: Parenteral and oral supplementation ordered. Serial labs (7) Abnormal CT scan, pelvis: Bladder lesion seen on CT - recommend urology follow up as an outpatient Plan Transfer to [facility] for coronary artery bypass grafting. Left heart cath done today, October 14, demonstrated a critical stenosis in the left main trunk. Admission HPI Per Admitting Provider Lauren Velazquez is a 73 year old female with chronic HFpEF, chronic bronchitis who presents to [facility] ER with shortness of breath and epigastric/chest pain. She finds it difficult to give me exact timelines of events but in general she notes severe epigastric/lower chest pain ongoing intermittently for the last 9 weeks. She first noticed it at rest while watching a TV show and it would last for minutes at a time. She reports associated shortness of breath with the pain. Worse on exertion, improved with rest. The episode have been more frequent and lasting longer. Improves on leaning forward. She also feels famotidine helps. The episode last night was the most severe it had been and lasted for hours starting at 10pm which prompted her visit to [facility]. She continues to notice mild pain currently. In the ER there was concern for sepsis with her elevated WBC (although notably had just started a prednisone course with her PCP yesterday). She was given IV Zosyn and IV vancomycin was ordered but never given. She was not given any fluid bolus due to concerns for congestive heart failure. She was noted to be hypoxic and started on 2LPM O2. CT chest for PE and A/P with IV contrast with impression below but main finding was mild interstitial pulmonary edema. There was some concern for COPD exacerbation and she was given Solu-Medrol 125mg IV but no nebulizer. Flu and SARS-COV-2 PCR were negative. High sensitivity troponin I 85 therefore her case was discussed with the hearing consultant hospitalist here for transfer due to no cardiology coverage at [facility]. She notably was recently admitted from September 05 - 2023 due to Acute kidney injury (Cr 1.83 , baseline 0.62), hyperkalemia (6.3) and dehydration suspected to be from recent addition of Lasix for possible heart failure. Lasix, triamterene, HCTZ, losartan and magnesium supplementation were held until PCP follow up. She reports not restarting on any of these and her family have noticed she has been getting much more swollen. She reports 6-7lb of weight gain since her last admission but feels she has been eating much more since giving up smoking. She was recently seen by pulmonology for possible COPD causing her symptoms however spirometry was indeterminant and she has multiple upcoming tests in October. Discharge Exam General-alert and oriented x3, no fever, no chills HEENT-head atraumatic and normocephalic, pupils equal and reactive to light, extraocular muscles intact Neck-no lymphadenopathy or thyromegaly, trachea midline Chest-clear to auscultation. No rales, wheezing or rhonchi Cardiac-regular rate and rhythm, normal S1 and S2 Musculoskeletaltender to palpation in the sternal area Abdomen-normal bowel sounds, no hepatosplenomegaly Extremities-no cyanosis, clubbing, or edema Neuro-cranial nerves II through XII intact, motor and sensory function within normal limits, strength symmetrical, no focal deficits Psych-normal affect, normal mood Discharge Plan Discharge Items Patient Disposition: Transfer Acute Care Hospital Reason For Visit: EPIGASTRIC PAIN,HYPOXIA,ELEVATED TROP Discharge Diagnosis: Non-ST elevation [place], left main trunk critical stenosis Activity: As commented below Activity Comment: Bedrest for now. May have bathroom privileges Non-emergency contact: Primary Care Provider and [employer] Call non-emergency contact if: you have any medication questions and your symptoms worsen Follow-up/Referrals: Dusty Snyder [Primary Care Provider] - Diet: Regular and Heart Healthy Addtl Attending Provider Instructions: See primary care provider and cdl service technician as soon as possible after discharge from [facility] Pending Studies at Discharge: No Stand-Alone Forms: My [facility] Skilled Items Patient informed of condition?: Yes DNR: No Discharge Level of Care: Other Communicable Disease: No Discharge Prognosis: Stable Lines: Peripheral IV Urinary Catheter: No Medications and DC Order Prescriptions: New sucralfate 1 gram Tablet 1 g PO ACHS Qty: 0 0RF pantoprazole 40 mg Tablet,Delayed Release (Dr/Ec) 40 mg PO QAM Qty: 0 0RF nitroglycerin [Nitrostat] 0.4 mg Tablet, Sublingual 0.4 mg sublingual Q5M PRNQty: 0 0RF metoprolol tartrate 25 mg Tablet 25 mg PO BID Qty: 0 0RF Continued tramadol 50 mg tablet 50 mg PO Q8H PRN (Reason: pain) Qty: 90 3RF amlodipine 5 mg tablet 5 mg PO DAILY Qty: 90 3RF gabapentin 600 mg tablet 600 mg PO TID sucralfate 1 gram tablet 1 g PO DAILY Linzess 145 mcg capsule 145 mcg PO DAILY clonazepam 0.5 mg tablet 0.5 mg PO DAILY PRN (Reason: Anxiety) famotidine 40 mg tablet 40 mg PO DAILY coenzyme Q10 200 mg capsule 200 mg PO DAILY duloxetine 20 mg capsule,delayed release(DR/EC) 20 mg PO DAILY cholecalciferol (vitamin D3) 25 mcg (1,000 unit) capsule 25 mcg PO WK aspirin 81 mg tablet,delayed release (DR/EC) 81 mg PO DAILY Spiriva Respimat 2.5 mcg/actuation mist 2 inh inhalation QAM Qty: 4 2RF nicotine [Nicoderm CQ] 21 mg/24 hr Patch 24 Hour 1 patch transdermal QAM Qty: 28 0RF albuterol sulfate 90 mcg/actuation HFA aerosol inhaler 1 - 2 puff inhalation Q4H PRN (Reason: shortness of breath or wheezing) Qty: 8.5 0RF prednisone 10 mg tablet See Rx Instructions .ROUTE .COMPLEX Rx Instructions: 40mg PO daily for 2 days 30mg PO daily for 2 days 20mg PO daily for 2 days 10mg Po daily for 2 days 5mg PO daily for 2 days doxycycline hyclate 100 mg tablet 100 mg PO BID Discharge Orders: Discharge Order (Routine); Ordered 10/14/24 Ordered By: Saqib Hodges Admission Data Admit Date/Time: 10/13/24 09:50 Attending Provider: Saqib Hodges Admit Provider: Enoch Florian Primary Care Provider: Dusty Snyder Other Providers: Sesar Potter; Luis Antonio Vasquez Hospital Stay Data Consultations 10/13/24 12:02 Consult Cardiology Routine Procedures Performed Operation Date: 10/14/24 12:00 Actual Procedures p Cineradiography w/Routine Exam - Bryce Leslie MD p Cath, Coronaries ONLY (no LV) - Bryce Leslie MD Diagnostic Imagining Performed 10/14/24 12:06 CL Cath Imgs for PACS use only Stat Pending Results Patient Have Any Pending Studies at Discharge: No Discharge Instructions Given to Patient (Per Discharging Provider) See primary care provider and cdl service technician as soon as possible after discharge from [facility] Total Time Total Time Spent Total Time Spent (In Minutes): 45 minutes Coding Level of Care Code 62836 INP/OBS DISCH >30 MIN Diagnoses Acute heart failure with preserved ejection fraction I50.31 Elevated troponin R79.89 Esophageal reflux K21.9 Hypoxia R09.02 Leukocytosis D72.8[address] E83.[address] scan, pelvis R93.5
[2024-10-14 14:43] LABS: ANTI-Xa, UFH(UnfractionatedHep > 1.50 IU/ml (0.3-0.7)
[2024-10-14 14:54] VITALS: RESP 16
[2024-10-14] MEDS ORDERED: MIDAZOLAM HCL 1 MG/ML 2ML VIAL ONE (15:02)
[2024-10-14] MEDS ORDERED: fentaNYL citrate PF 100 MCG/2 ML VIAL ONE (15:03)
[2024-10-14] MEDS ORDERED: ATORVASTATIN 40 MG TAB PO SCH (15:30)
--- NOTE | 2024-10-14 15:47 | Post Anesthesia Assessment ---
Date of Service October 14, 2024 Post Sedation Assessment Vital Signs Temp Pulse Pulse Resp BP Pulse Ox O2 Del Method 10/14/24 14:45 97.9 F 59 L 16 154/71 H 93 Room Air 10/14/24 14:15 97.9 F 58 L 18 150/81 H 98 Room Air 10/14/24 13:54 97.9 F 56 L 18 160/81 H 98 Nasal Cannula 10/14/24 13:30 97.5 F L 56 L 18 151/75 H 95 Nasal Cannula 10/14/24 13:15 97.5 F L 55 L 20 131/75 96 Nasal Cannula 10/14/24 08:00 98.2 F 70 18 123/67 94 Room Air 10/14/24 07:57 80 10/14/24 04:23 97.9 F 70 18 133/73 94 Room Air 10/13/24 22:33 98.2 F 76 18 121/62 94 Room Air 10/13/24 21:54 74 10/13/24 21:00 Nasal Cannula 10/13/24 20:09 98.2 F 70 18 166/80 H 98 Nasal Cannula 10/13/24 15:52 97.9 F 75 16 149/78 H 98 Nasal Cannula O2 Flow Rate 10/14/24 14:45 10/14/24 14:15 10/14/24 13:54 1.0 10/14/24 13:30 2 10/14/24 13:15 2 10/14/24 08:00 10/14/24 07:57 10/14/24 04:23 10/13/24 22:33 10/13/24 21:54 10/13/24 21:00 10/13/24 20:09 4 10/13/24 15:52 4 Recovery Score Activity: Moves 4 extremities Respiration: Deep Breath/Cough Circulation: +/-20% PreAnes Value Consciousness: Fully Awake Oxygen Saturation: O2 needed for >90% Discharge Sedation Level of Care: Higher Level of Care Post Sedation Plan On clinical assessment, the patient appears to have tolerated the sedation without complications. Patient is recovering as anticipated. Patient will continue to be monitored by nursing and may be discharged when sedation discharge criteria are met per below protocol. Upon Completions of procedure up to 15 minutes continue every 5 minute vital signs and the P.A.R. score; then discharge to a Phase I or Fast Track to Phase II per the following guidelines: * Discharge Patient to appropriate Phase II area if PAR is 8 or greater or return to pre- procedure baseline. The post - procedure orders will be as directed. * If PAR score is less than 8 or not return to pre-procedure baseline then patient will follow Phase I monitoring till PAR is reached for Phase II. The Phase I may be done in procedure room or may call to secure a Phase I area. * If naloxone or flumazenil are used for reversal, hold in Phase I for continued monitoring from when last reversal dose was given for a minimum of 60 minutes or longer pending the nurse and/or physician discretion of patient condition before discharge to Phase II. Please call the Sedation Physician to re-evaluate and complete post-note for discharge to Phase II area. Do NOT discharge from procedure sedation or Phase 1 until post- sedation evaluation note is complete by procedure /sedation MD Sedation Discharge Instructions to be given to the patient at discharge to home.
--- NOTE | 2024-10-14 15:53 | Cardiac Catheterization ---
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 Political History Cardiac Status Clinical evaluation leading to the procedure CAD Presenation: Unstable angina Diagnostic Physicians Name: Bryce Leslie MD Closure Device Recommendations: CABG Cardiac Cath Procedure Full Procedure Date October 14, 2024 Pre-Procedure Diagnosis Pre-Procedure Diagnosis: Acute Coronary Syndrome and CAD AUC Score AUC Score: 8 Post-Procedure Diagnosis Post-Procedure Diagnosis: Severe CAD Procedure(s) Performed Procedure(s) Performed: IABP, Ultrasound Guided Vascular Access and Femoral Artery Angiography Dope Heater Bryce Leslie MD Stockroom Associate(s) Deibler Estimated Blood Loss Estimated Blood Loss: 5 Medication(s) Medication(s): Fentanyl, Lidocaine 1% and Versed Summary of Findings IABP Insertion Indication: Severe left main disease, unstable angina Procedure: Moderate sedation and local 1% lidocaine Right [employer] accessed under ultrasound guidance with micropuncture needle 8 Fr 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 Sheath/catheter sutured/secured in place Summary: 1. Successful placement of IABP Recommendations: Transfer to [facility] for cardiac surgery evaluation and CABG Hemodynamics Rest Ao:: Final Ao: LV: Recommendations Recommendations: CABG Radiation Exposure (mGy) 141 Contrast (mls) -- Anesthesia Moderate [id number] Procedural Complication(s) None Disposition ICU I attest to the content of the Intraoperative Record and any orders documented therein. Any exceptions are noted below. [facility] Card Cath Procedure Codes Therapeutic Services & Ancillary Procedure 1: Cardiovascular Tx and Anc Procedures: 71469 Ultrasonic Guidance Vascular Access Procedure 2: Cardiovascular Tx and Anc Procedures: 37014 IABP Insertion Moderate Sedation Procedure 1: Sedation/Anesthesia: 59106 Mod Sedation by the same physician;Init15 Min Child Age 5 & Up PG Care Time/CCT Total # of Minutes Spent Total Time Spent with Patient: Total time spent is greater than 50% in coordination of care (as documented) at patient's floor/unit and/or counseling patient:
[2024-10-14] MEDS ORDERED: NITROGLYCERIN 2% OINTMENT 30GM TUBE EXT SCH (16:30)
[2024-10-14 16:50] VITALS: BP 116/43; PULSE 56; O2SAT 92
[2024-10-14] MEDS ORDERED: METOPROLOL TARTRATE 25 MG TAB PO SCH (21:00)
--- NOTE | 2024-10-15 07:13 | Electrocardiogram Report ---
Test Reason : Blood Pressure : */* mmHG Vent. Rate : 68 BPM Atrial Rate : 74 BPM P-R Int : 118 ms QRS Dur : 94 ms QT Int : 440 ms P-R-T Axes : 57 32 18 degrees QTcB Int : 467 ms Sinus rhythm with sinus arrhythmia with occasional Premature ventricular complexes Abnormal ECG When compared with ECG of 05-Sep-2024 18:04, Premature ventricular complexes are now Present Nonspecific T wave abnormality now evident in Inferior leads T wave inversion now evident in Anterolateral leads Confirmed by Sesar Potter ([id number]) on 10/15/2024 7:13:07 AM Referred By: Luis Antonio Vasquez Confirmed By: Sesar Potter
--- NOTE | 2024-10-15 07:42 | Electrocardiogram Report ---
Test Reason : Blood Pressure : */* mmHG Vent. Rate : 102 BPM Atrial Rate : 102 BPM P-R Int : 134 ms QRS Dur : 94 ms QT Int : 364 ms P-R-T Axes : 74 49 267 degrees QTcB Int : 474 ms Sinus tachycardia Possible Left atrial enlargement Marked ST abnormality, possible inferior subendocardial injury Abnormal ECG When compared with ECG of 13-Oct-2024 10:53, (unconfirmed) Premature ventricular complexes are no longer Present Vent. rate has increased by [address] now depressed in Inferior leads ST now depressed in Lateral leads Confirmed by Sesar Potter ([id number]) on 10/15/2024 7:41:57 AM Referred By: Luis Antonio Vasquez Confirmed By: Sesar Potter
== END 2024-10-14 19:00 | disposition short-term general hospital (02) | DRG 271 ==
LOC: SUATTDRO 09:50 → 2S 09:50 → INTOOBSV 10:33 → 1E 10-14 15:59
PROC: CLB.CCO (2024-10-14 12:00)